=== PATIENT | male | born 1950 | race Caucasian/White ===

== ENCOUNTER → 2017-07-16 | Outpatient (CLI) | payer MEDICARE ==
--- NOTE | 2017-07-16 21:17 | MR ---
MRI CERVICAL SPINE: CLINICAL HISTORY: Cervicalgia and cervical disc degeneration per order. Headache with neck pain for 5 years per patient. TECHNIQUE: Multiplanar, multisequence imaging of the cervical spine is performed without IV contrast. COMPARISON: MRI cervical spine September 20, 2013. FINDINGS: Coronal images redemonstrate levoconvex scoliotic curvature positioning centered in the upp er thoracic spine. Sagittal images of the cervical spine show the craniocervical junction to appear w ithin normal limits. The cervical and upper thoracic spinal cord is normal in caliber and signal. Th ere is persistent grade 1 retrolisthesis of C5 on C6.. The vertebral body heights are normal. There is redemonstration of mild to moderate disc space narrowing C5-C6 and C6-C7 levels. Posterior disc h erniations are present at these levels on sagittal images. There is mild to moderate anterior spurrin g at these levels redemonstrated. The bone marrow signal intensity is within normal limits. Axial images show the C2-C3 level to remain within normal limits. Axial images at C3-C4 level show new right foraminal disc protrusion causing asymmetric mild to moder ate right-sided neural foraminal narrowing seen best on axial image 41. Left-sided neural foramen is patent. Spinal canal is preserved. Axial images at C4-C5 level redemonstrate left-sided uncovertebral facet degenerative changes contrib uting to mild to moderate left-sided neural foraminal narrowing more prominent than on prior study. R ight-sided neural foramina is patent. Spinal canal is preserved. Axial images at C5-C6 level show broad-based right paracentral/foraminal disc protrusion effacing ant erolateral thecal sac nearly up to ventral surface of spinal cord and causing severe right and modera te to severe left-sided neural foraminal narrowing with findings more prominent than prior study. Axial images at C6-C7 level show broad disc protrusion with more focal central disc protrusion compon ent effacing anterior thecal sac and causing advanced bilateral neural foraminal narrowing with progr ession from prior MRI felt present seen best near axial image 14. Axial images at C7-T1 level are felt within normal limits. IMPRESSION: Progression of multilevel degenerative changes with new findings noted C3-C4 and C4-C5 le ginette and more prominent findings noted at more severely affected C5-C6 and C6-C7 levels as detailed ab ove.
== END | disposition home or self-care (01) ==
LOC: RADMRIMAIN 16:05
PROVIDERS: ATTEND Family Medicine
DX: M47.812 Spondylosis without myelopathy or radiculopathy, cervical region (principal)
CPT/HCPCS: 72141

== ENCOUNTER → 2020-07-21 | Outpatient (CLI) | payer MEDICARE ==
[2020-07-21 11:12] LABS: African American GFR (CKD) >90 (>60 ml/min/1.73 sqM); Blood Urea Nitrogen 10 mg/dL (9-20); Non-African American GFR(CKD) 80 (>60 ml/min/1.73 sqM)
--- NOTE | 2020-07-21 14:28 | CT ---
"EXAMINATION TYPE: CT abdomen pelvis w con DATE OF EXAM: 07/21/2020 COMPARISON: None HISTORY: Stomach pains, swelling, constipation, possible hernia CT DLP: 421.2 mGycm Automated exposure control for dose reduction was used. TECHNIQUE: Helical acquisition of images from the lung bases through the pelvis have been completed. CONTRAST: Performed with Oral Contrast and with IV Contrast, patient injected with 100 mL of Isovue 300. FINDINGS: Left inguinal hernia contains fat. LUNG BASES: No significant abnormality is appreciated. AORTA: Infrarenal abdominal aorta measures 3.5 cm, atheromatous changes are present.. LIVER/GB: No significant abnormality is appreciated. PANCREAS: Pancreatic duct appears prominently, no mass is evident however. SPLEEN: No significant abnormality is seen. ADRENALS: No significant abnormality is seen. KIDNEYS: Low dense focus in the lower pole the right kidney subcentimeter size likely represents a co rtical cyst.. REPRODUCTIVE ORGANS: There are associated calcifications within the prostate. BOWEL: Diverticular changes noted within the sigmoid colon. At the level of the left pelvic sidewall there is an elliptical area of low-attenuation measuring 3.1 cm in AP dimension by 12 mm in transver se dimension by 2.6 cm in cephalad to caudal dimension which show some local mass effect on the lumen of the sigmoid colon but appears to be within the wall of the sigmoid colon. FREE AIR: No Free Air visible. ASCITES: None visible. PELVIC ADENOPATHY: None visualized. RETROPERITONEAL ADENOPATHY: No Retroperitoneal Adenopathy visible. URINARY BLADDER: No significant abnormality is seen. OSSEOUS STRUCTURES: Bilateral spondylolysis at L5, there is anterolisthesis L5-S1, associated degene rative disc disease at the lower lumbar spine, facet arthropathy. IMPRESSION: PROBABLE ABSCESS LOCALIZED TO THE WALL OF THE SIGMOID COLON. LEFT INGUINAL HERNIA. DIVERTICULOSIS. A Yellow level critical message alert has been initiated for Zane Coto MD~[id number] via the [employer] | Critical Results System on 07/21/2020 2:25 PM. This message alert has been sent to Zane Coto MD~[id number] via the preferences provided by the clinician for the receipt of Radiology Critical Findings. Message ID [id number]."
== END | disposition home or self-care (01) ==
LOC: RADCTMAIN 10:20
PROVIDERS: ATTEND Surgery
DX: K40.90 Unilateral inguinal hernia, without obstruction or gangrene, not specified as recurrent (principal); K57.30 Diverticulosis of large intestine without perforation or abscess without bleeding
CPT/HCPCS: 82565; 84520; 74177; 36415; Q9967

== ENCOUNTER → 2020-08-18 | Outpatient (CLI) | payer MEDICARE ==
[2020-08-18 11:29] LABS: African American GFR (CKD) >90 (>60 ml/min/1.73 sqM); Blood Urea Nitrogen 15 mg/dL (9-20); Non-African American GFR(CKD) 83 (>60 ml/min/1.73 sqM)
--- NOTE | 2020-08-19 17:25 | CT ---
EXAMINATION TYPE: CT abdomen pelvis w con DATE OF EXAM: 08/18/2020 COMPARISON: 07/21/2020. HISTORY: Diverticulitis CT DLP: 376.70 mGycm Automated exposure control for dose reduction was used. TECHNIQUE: Helical acquisition of images was performed from the lung bases through the pelvis. CONTRAST: Performed with Oral Contrast and with IV Contrast, patient injected with 100 mL of Isovue 300. FINDINGS: LUNG BASES: No significant abnormality is appreciated. LIVER/GB: No significant abnormality is appreciated. PANCREAS: No significant abnormality is seen. Stable mild pancreatic ductal dilatation without obviou s mass or stone seen. SPLEEN: No significant abnormality is seen. ADRENALS: No significant abnormality is seen. KIDNEYS: No significant abnormality is seen. FREE AIR: No free air is visualized. RETROPERITONEAL ADENOPATHY: None visualized REPRODUCTIVE ORGANS: No significant abnormality is seen URINARY BLADDER: No significant abnormality is seen. PELVIC ADENOPATHY: None visualized. OSSEOUS STRUCTURES: No acute abnormality is seen. Stable grade 1 anterolisthesis at L5-S1. BOWEL: No acute abnormality is seen. Mild bowel wall thickening of the sigmoid colon at site of prev ious small wall abscess. Colon diverticulosis. OTHER: None. IMPRESSION: RESOLUTION OF PREVIOUS SIGMOID COLONIC WALL ABSCESS WITH RESIDUAL MILD THICKENING. NO ACUTE ABNORMALITY. Chronic findings as above.
== END | disposition home or self-care (01) ==
LOC: RADCTMAIN 10:28
PROVIDERS: ATTEND Surgery
DX: K57.32 Diverticulitis of large intestine without perforation or abscess without bleeding (principal)
CPT/HCPCS: 82565; 84520; 74177; 36415; Q9967

== ENCOUNTER 2020-09-19 09:59 | Day surgery (SDC) | payer MEDICARE ==
[2020-09-13 10:00] VITALS: BMI 20.9
[~2020-09-19 09:59] MED LIST: LACTATED RINGERS 1,000 ML IV SCH; LIDOCAINE 1% (10MG/ML) FOR IV START INTRADERMA PRN
[2020-09-19 10:26] VITALS: RESP 16; TEMP 97.8
[2020-09-19] MEDS ORDERED: PROPOFOL 10 MG/ML 20 ML VIAL IV ONE (10:49)
--- NOTE | 2020-09-19 11:08 | P.PCN ---
Date of Procedure: 09/19/20 Procedure(s) Performed: PREOPERATIVE DIAGNOSIS: Change in bowel habits POSTOPERATIVE DIAGNOSIS: Extensive sigmoid diverticulosis with tortuosity. Unable to advance beyond the mid to proximal sigmoid colon PROCEDURE: Attempted colonoscopy ANESTHESIA: MAC SURGEON: Zane Coto M.D. SPECIMENS: None ENDOSCOPIC PROCEDURE: The patient was placed on the endoscopy table in the left decubitus position. The Olympus colonoscope was inserted into the anus and passed under direct visualization to the mid to proximal sigmoid colon. Navigation through the sigmoid was quite challenging given tortuosity and significant diverticulosis. There was no definite stricture formation. No neoplastic changes were seen. I could not advance the scope more proximal than that. The visualized sigmoid and rectum are free of any polypoid or neoplastic changes. Mild mucosal inflammation was seen in a few areas consistent with recent diverticulitis. Digital rectal examination was normal. The patient was taken to the recovery room in stable condition per anesthesia guidelines. RECOMMENDATIONS: Will order a barium enema for tomorrow.
[2020-09-19 11:26] VITALS: BP 123/76; PULSE 72
== END 2020-09-19 11:57 | disposition home or self-care (01) ==
LOC: ORWHC2ENDO 09:59
PROVIDERS: ATTEND Surgery
DX: K57.30 Diverticulosis of large intestine without perforation or abscess without bleeding (principal); K40.90 Unilateral inguinal hernia, without obstruction or gangrene, not specified as recurrent; I10 Essential (primary) hypertension; E78.5 Hyperlipidemia, unspecified; F03.90 Unspecified dementia, unspecified severity, without behavioral disturbance, psychotic disturbance, mood disturbance, and anxiety; M19.90 Unspecified osteoarthritis, unspecified site; F17.210 Nicotine dependence, cigarettes, uncomplicated; Z79.891 Long term (current) use of opiate analgesic; Z79.1 Long term (current) use of non-steroidal anti-inflammatories (NSAID); Z79.899 Other long term (current) drug therapy; Z96.659 Presence of unspecified artificial knee joint
CPT/HCPCS: 45330; J2704; 45378

== ENCOUNTER → 2020-09-20 | Outpatient (CLI) | payer MEDICARE ==
--- NOTE | 2020-09-20 10:47 | FL ---
EXAMINATION TYPE: FL barium enema DATE OF EXAM: 09/20/2020 COMPARISON: CT abdomen and pelvis August 18, 2020 HISTORY: Incomplete colonoscopy yesterday. TECHNIQUE: A double contrast barium enema study is performed. 20 images obtained during exam. There was 1.36 minutes of fluoroscopic time utilized during procedure. FINDINGS: Seat Mender view of the abdomen shows overall non-obstructive bowel gas pattern. Slight underlyi ng scoliotic curvature. Multilevel spurring in the spine. Moderate narrowing both hip joints. Enema study is performed. There are successful opacification to cecum. Redundancy is confirmed as not ed on incomplete colonoscopy yesterday and the sigmoid colon. There are scattered colonic diverticula greatest in the sigmoid colon. No obstructing or constricting lesion identified. Presence of diverti cula and redundant colon makes evaluation for focal polyps suboptimal. There is also internal retaine d fecal debris making evaluation for polyps suboptimal. Appendix was filled and appeared normal. The terminal ileum was not refluxed. IMPRESSION: Suboptimal study but there is successful filling to the cecum. Scattered colonic diverti cula without obstructing or constricting neoplasm noted.
== END | disposition home or self-care (01) ==
LOC: RADFLMAIN 07:51
PROVIDERS: ATTEND Surgery
DX: K57.30 Diverticulosis of large intestine without perforation or abscess without bleeding (principal)
CPT/HCPCS: 74270

== ENCOUNTER → 2020-11-28 | Outpatient (CLI) | payer MEDICARE ==
--- NOTE | 2020-11-28 14:51 | MR ---
EXAMINATION TYPE: MR cspine/lspine wo con DATE OF EXAM: 11/28/2020 COMPARISON: MRI cervical and lumbar spine September 20, 2013. MRI cervical spine July 16, 2017 HISTORY: Neck and lower back pain, stiffness, headaches. Cervicalgia, cervical disc degeneration, low back pain, intervertebral disc degeneration lumbar spine. TECHNIQUE: Multiplanar, multisequence imaging of the cervical and lumbar spine are performed without IV contrast. FINDINGS: C-SPINE: FINDINGS: Persistent levoconvex scoliotic curvature positioning centered upper thoracic spine Sagitta l images of the cervical spine show the craniocervical junction to remain within normal limits. The cervical and upper thoracic spinal cord remains normal in caliber and signal. There is persistent gra de 1 retrolisthesis of C5 on C6 and C6 on C7. The vertebral body heights remain normal. There is red emonstration of moderate disc space narrowing C5-C6 and C6-C7 levels slightly more prominent from 201 7 study. There is moderate anterior spurring at these levels on current study. The bone marrow signal intensity overall show slightly more prominent heterogeneity on current study. Axial images show the C2-C3 level to remain within normal limits. Axial images at C3-C4 level show broad-based disc protrusion and uncovertebral facet degenerative karo nges mildly effaces the anterior thecal sac and causing mild left along with moderate to severe right -sided neural foraminal narrowing. Interval degenerative progression from 2017 MRI noted. Axial images at C4-C5 level redemonstrate left-sided uncovertebral facet degenerative changes contrib uting to mild to moderate left-sided neural foraminal narrowing stable from prior study. Right-sided neural foramina is patent. Spinal canal is preserved. Axial images at C5-C6 level show spondylolisthesis and broad-based right paracentral/foraminal disc p rotrusion effacing anterolateral thecal sac and causing severe right and moderate left-sided neural f oraminal narrowing likely stable from most recent prior study. Axial images at C6-C7 level show broad-based disc protrusion with more focal central disc protrusion component effacing anterior thecal sac similar to prior and causing moderate to advanced bilateral ne ural foraminal narrowing with without significant change from prior matter axial image 17 current hansel dy Axial images at C7-T1 level show small right paracentral disc protrusion effacing ventral thecal sac with mild bilateral neural foraminal narrowing. IMPRESSION: Stable spondylolisthesis C5-C6 and C6-C7 levels. Multilevel degenerative changes with sharmaine e degenerative progression from 2017 MRI noted as detailed above. L-SPINE: Dextroconvex scoliotic curvature centered L4 level is present. Sagittal images of the lumbar spine sh ow vertebral body heights to remain satisfactory. Slight grade 1 retrolisthesis L3 on L4 with more pr ominent grade 1 anterolisthesis L5 on S1 is redemonstrated. There is multilevel disc desiccation agai n seen. There is moderate disc space narrowing L4-L5 and moderate to advanced disc space narrowing L5 -S1 level. The conus medullaris remains normal in position and signal ending at T12-L1 disc space le ginette. 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 Th e bone marrow signal intensity is within normal limits. Axial images at T12-L1 level remain within normal limits. Axial images at L1-L2 level show mild to moderate broad disc bulge mildly effaces the anterior thecal sac with right foraminal disc protrusion component causing mild right-sided anterior inferior neural foraminal narrowing. Patent left-sided neural foramina. Axial images at the L2-L3 level show mild to moderate broad disc bulge mildly effacing anterior theca l sac, there is mild right-sided anterior inferior neural foraminal narrowing seen on current study. Axial images at L3-L4 level mild to moderate facet degenerative changes and ligamenta flavum hypertro phy. There is spondylolisthesis with moderate broad-based posterior disc protrusion. There is mild ef facement of anterior thecal sac. There is moderate left and mild right-sided neural foraminal narrowi ng seen. Findings progressed from prior MRI. Axial images at L4-L5 level show mild/moderate facet arthropathy bilaterally. There is subtle spondyl olisthesis with right paracentral disc protrusion effacing anterolateral thecal sac, there is moderat e left and moderate to severe right-sided neural foraminal narrowing. Interval progression from prior MRI noted. Axial images at L5-S1 level redemonstrated spondylolisthesis with disc herniation, there is moderate to advanced facet arthropathy more prominent on current study. There is moderate to severe right and mild to moderate left-sided neural foraminal narrowing, encroachment along inferior margin right L5 n erve is thought present on current study sagittal image 14. Paraspinal muscle bulk is preserved. 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
== END | disposition home or self-care (01) ==
LOC: RADMRIMAIN 12:33
PROVIDERS: ATTEND Family Medicine
DX: M43.17 Spondylolisthesis, lumbosacral region (principal); M47.816 Spondylosis without myelopathy or radiculopathy, lumbar region; M51.27 Other intervertebral disc displacement, lumbosacral region; M43.12 Spondylolisthesis, cervical region; M50.223 Other cervical disc displacement at C6-C7 level; M47.812 Spondylosis without myelopathy or radiculopathy, cervical region
CPT/HCPCS: 72141; 72148

== ENCOUNTER 2020-12-25 06:07 | Day surgery (SDC) | payer MEDICARE ==
[2020-12-20 10:51] VITALS: BMI 20.9
[~2020-12-25 06:07] MED LIST changes: +ACETAMINOPHEN TAB 500 MG TAB PO PRN; +HEPARIN SODIUM,PORCINE/PF 5,000 UNIT/0.5 ML SYRINGE SQ PRN; -LACTATED RINGERS 1,000 ML IV SCH; -LIDOCAINE 1% (10MG/ML) FOR IV START INTRADERMA PRN
[2020-12-25] MEDS ORDERED: MIDAZOLAM 2 MG/2 ML VIAL IV PRN (06:21)
[2020-12-25] MEDS ORDERED: LACTATED RINGERS 1,000 ML IV SCH (06:21)
[2020-12-25] MEDS ORDERED: LIDOCAINE 1% (10MG/ML) FOR IV START INTRADERMA PRN (06:21)
[2020-12-25 06:35] VITALS: RESP 16
[2020-12-25] MEDS ORDERED: ONDANSETRON 4 MG/2 ML VIAL ONE (06:42)
[2020-12-25] MEDS ORDERED: HYDROmorphone 0.5 MG/0.5 ML SYRINGE IVP PRN (07:00)
[2020-12-25] MEDS ORDERED: ONDANSETRON 4 MG/2 ML VIAL IVP ONE (07:03)
[2020-12-25] MEDS ORDERED: DEXAMETHASONE SOD PHOSPHATE 4 MG/ML 1 ML VIAL IV ONE (07:04)
--- NOTE | 2020-12-25 07:39 | P.GSHP ---
History of Present Illness H&P Date: 12/25/20 Chief Complaint: Left inguinal hernia 70-year-old male first seen last fall. Patient with complaints of left inguinal hernia. Mild pain at times. No nausea or vomiting. He underwent colonoscopy in September and follow-up barium enema after that. Past Medical History Past Medical History: Eye Disorder, Osteoarthritis (OA), Skin Disorder Additional Past Medical History / Comment(s): HX LT EYE INJ 1975, PARTIAL VISION LOSS. VARICOSE VEINS. HERNIA, DIVERTICULITIS History of Any Multi-Drug Resistant Organisms: None Reported Past Surgical History: Joint Replacement, Orthopedic Surgery Additional Past Surgical History / Comment(s): RT KNEE LATERAL DISLOCATION REPAIR, HAS A STAPLE. LT EYE SURG REPAIR. COLONOSCOPY, 05-28-16 TOTAL RT KNEE Past Anesthesia/Blood Transfusion Reactions: No Reported Reaction Additional Past Anesthesia/Blood Transfusion Reaction / Comment(s): no hx blood transfusion Smoking Status: Former smoker - Past Family History Mother Family Medical History: No Reported History Additional Family Medical History / Comment(s): AT AGE 87 PT STATED FROM OLD AGE Father Family Medical History: Coronary Artery Disease (CAD), Sleep Apnea/CPAP/BIPAP Additional Family Medical History / Comment(s): TRIPLE CABG Medications and Allergies Home Medications Medication Instructions Recorded Confirmed Type traZODone HCL [Desyrel] 100 mg PO HS 05/20/16 12/25/20 History HYDROcodone/APAP 7.5-325MG [Finger 1 - 2 each PO Q6HR PRN #60 tab 05/30/16 12/25/20 Rx 7.5] Celecoxib [CeleBREX] 200 mg PO DAILY 09/13/20 12/20/20 History Aspirin 325 mg PO DAILY PRN 12/20/20 12/20/20 History Allergies Allergy/AdvReac Type Severity Reaction Status Date / Time No Known Allergies Allergy Verified 12/20/20 10:44 Surgical - Exam Vital Signs Temp Pulse Resp BP Pulse Ox 97.4 F L 61 16 145/82 97 12/25/20 06:33 12/25/20 06:33 12/25/20 06:33 12/25/20 06:33 12/25/20 06:33 Physical exam: General: Well-developed, well-nourished HEENT: Normocephalic, sclerae nonicteric Abdomen: Nontender, nondistended, reducible left inguinal hernia Extremities: No edema Neuro: Alert and oriented Assessment and Plan (1) Left inguinal hernia Narrative/Plan: Will proceed with da Kaylee assisted laparoscopic repair left inguinal hernia with mesh, possible open, possible bilateral. Risks of bleeding, infection, recurrence, bladder and bowel injury, numbness, nerve injury, conversion to an open procedure were discussed with the patient. The patient understands and wishes to proceed. Current Visit: Yes Status: Acute Code(s): K40.90 - UNIL INGUINAL HERNIA, W/O OBST OR GANGR, NOT SPCF RECUR OMED Code(s): 861744361
[2020-12-25] MEDS ORDERED: SUCCINYLCHOLINE CHLORIDE 100 MG/5 ML SYR IV ONE (07:45)
[2020-12-25] MEDS ORDERED: GLYCOPYRROLATE 0.2 MG/ML 2 ML VIAL ONE (07:45)
[2020-12-25] MEDS ORDERED: KETOROLAC 15 MG/ML 1 ML VIAL ONE (07:45)
[2020-12-25] MEDS ORDERED: LIDOCAINE 1% INJ 10MG/ML (20 ML MDV) ONE (07:45)
[2020-12-25] MEDS ORDERED: fentaNYL (PF) 50 MCG/ML 2 ML AMP ONE (07:45)
[2020-12-25] MEDS ORDERED: ePHEDrine SULFATE/0.9% NACL/PF 50 MG/5 ML SYRINGE IV ONE (07:45)
[2020-12-25] MEDS ORDERED: ROCURONIUM 10 MG/ML (5 ML VIAL) IV ONE (07:45)
[2020-12-25] MEDS ORDERED: PROPOFOL 10 MG/ML 20 ML VIAL IV ONE (07:45)
[2020-12-25] MEDS ORDERED: NEOSTIGMINE 1 MG/ML 10 ML VIAL ONE (07:45)
[2020-12-25] MEDS ORDERED: BUPIVACAINE (PF) 0.25% 30 ML VIAL SQ ONE (08:12)
[2020-12-25] MEDS ORDERED: LACTATED RINGERS 1,000 ML IV ONE (09:02)
--- NOTE | 2020-12-25 09:08 | P.OP ---
Date of Procedure: 12/25/20 Procedure(s) Performed: PREOPERATIVE DIAGNOSIS: Left inguinal hernia POSTOPERATIVE DIAGNOSIS: Same PROCEDURE: Laparoscopic repair left direct inguinal hernia with the da Kaylee robot assistance with mesh SURGEON: Nnamdi EBL: Minimal ANESTHESIA: General COMPLICATIONS: None OPERATIVE PROCEDURE: Patient was placed in the operating table in the supine position. The patient was placed under general anesthesia. The abdomen was prepped and draped in usual sterile fashion. A small curvilinear supraumbilical incision was made. The fascia was retracted anteriorly with [place] forceps. The Veress needle was inserted. The saline drop test was normal. Insufflation took place to 15 mmHg. An 8 mm trocar was placed into the peritoneal cavity. 2 additional 8 mm trochars were placed in the right upper quadrant and left upper quadrant under visualization. The robotic arms were then brought in and docked into place. The fenestrated bipolar was used in the left arm and the laparoscopic jeet was utilized in the right arm. A 30 8 mm scope was used in the up position. The peritoneal cavity was inspected. The patient had a direct hernia on the left-hand size. Defect 2.5 cm. The peritoneum was incised in a horizontal fashion cephalad to the internal inguinal ring. Following that careful dissection of the preperitoneal space took place. This took place using both electrocautery, sharp dissection but primarily blunt dissection. Visualization of the pubic tubercle and Pedro's ligament took place medially. Full dissection took place laterally as well. The hernia sac was fully dissected. Once we had adequate space the extra-large Bard 3-D max mid mesh was advanced into the preperitoneal space and flattened out appropriately to cover all potential hernia sites. A six-inch 20 v lock suture was used to suture the mesh medial to the defect. The peritoneal defect was then closed using a locking 2-0 VLok suture. The hernia sac was sutured to the peritoneal closure. The pneumoperitoneum was then evacuated. The skin of all 3 sites was closed using a 4-0 Monocryl stitch. Skin glue was then applied. DISPOSITION: Stable to recovery room
[2020-12-25] MEDS ORDERED: TAMSULOSIN 0.4 MG CAP.ER.24H PO STA (09:10)
[2020-12-25 09:18] VITALS: TEMP 98.6
[2020-12-25] MEDS: HYDROmorphone 1 MG/ML 1 ML SYRINGE IVP ONE ×4 (09:35→09:54)
[2020-12-25] MEDS ORDERED: SODIUM CHLORIDE 0.9% 1,000 ML IV ONE (10:06)
[2020-12-25] MEDS ORDERED: HYDROcodone/APAP 7.5-325MG 1 EACH TAB ONE (10:30)
[2020-12-25] MEDS ORDERED: HYDROcodone/APAP 7.5-325MG 1 EACH TAB PO ONE (10:34)
[2020-12-25 10:57] VITALS: BP 131/70; PULSE 67
[2020-12-25] MEDS ORDERED: IBUPROFEN 600 MG TAB PO SCH (12:00)
[2020-12-25] MEDS ORDERED: ACETAMINOPHEN TAB 325 MG TAB PO SCH (15:00)
== END 2020-12-25 11:17 | disposition home or self-care (01) ==
LOC: OR 06:07
PROVIDERS: ATTEND Surgery
DX: K40.90 Unilateral inguinal hernia, without obstruction or gangrene, not specified as recurrent (principal); M19.90 Unspecified osteoarthritis, unspecified site; H54.7 Unspecified visual loss; I83.90 Asymptomatic varicose veins of unspecified lower extremity; Z96.651 Presence of right artificial knee joint; Z98.890 Other specified postprocedural states; F17.210 Nicotine dependence, cigarettes, uncomplicated; Z82.49 Family history of ischemic heart disease and other diseases of the circulatory system; Z83.6 Family history of other diseases of the respiratory system; Z79.891 Long term (current) use of opiate analgesic; Z79.899 Other long term (current) drug therapy; Z79.82 Long term (current) use of aspirin
CPT/HCPCS: 49650; S2900

== ENCOUNTER → 2021-02-12 | Outpatient (CLI) | payer MEDICARE ==
[2021-02-12 11:41] VITALS: BP 125/84; PULSE 66; RESP 16; TEMP 97.7
--- NOTE | 2021-02-12 12:02 | P.PAINCN ---
History of Present Illness - Reason for Consult Consult date: 02/12/21 - History of Present Illness This is the initial consultation visit for this 70 years old male with a chronic history of severe neck pain and low back pain, patient diagnosed with lumbar spondylosis and lumbar facet arthropathy, and cervical spondylosis with cervical facet arthropathy, and was treated at the [facility] by Dr. Pike and he did RFA of the medial branch cervical area, and patient gets excellent pain relief, and also patient had transforaminal epidural steroid injection and he does admit benefits from it and currently most of the pain in the cervical area and the pain increased with any neck movement he denies any fever or night sweats he denies any change in the bowel movement or urination, he denies any motor or sensory deficit is able to use his upper and lower extremity without any difficulty, his main issue is pain which is increased with any activity he denies any numbness or tingling sensation Past Medical History Past Medical History: Eye Disorder, Hypertension, Musculoskeletal Disorder, Osteoarthritis (OA), Skin Disorder Additional Past Medical History / Comment(s): HX LT EYE INJ 1975, PARTIAL VISION LOSS. VARICOSE VEINS. DIVERTICULITIS, lower back pain & neck pain History of Any Multi-Drug Resistant Organisms: None Reported Past Surgical History: Hernia Repair, Joint Replacement, Orthopedic Surgery Additional Past Surgical History / Comment(s): RT KNEE LATERAL DISLOCATION REPAIR, HAS A STAPLE. LT EYE SURG REPAIR. COLONOSCOPY, 05-28-16 TOTAL RT KNEE Past Anesthesia/Blood Transfusion Reactions: No Reported Reaction Past Psychological History: No Psychological Hx Reported Smoking Status: Former smoker Past Alcohol Use History: None Reported Additional Past Alcohol Use History / Comment(s): SMOKED 50 YEARS, 1PPD, QUIT 03/2016. Past Drug Use History: None Reported - Past Family History Mother Family Medical History: No Reported History Additional Family Medical History / Comment(s): AT AGE 87 PT STATED FROM OLD AGE Father Family Medical History: Coronary Artery Disease (CAD), Sleep Apnea/CPAP/BIPAP Additional Family Medical History / Comment(s): TRIPLE CABG Medications and Allergies Home Medications Medication Instructions Recorded Confirmed Type traZODone HCL [Desyrel] 100 mg PO HS 05/20/16 02/09/21 History HYDROcodone/APAP 7.5-325MG [[place] 1 - 2 each PO Q6HR PRN #60 tab 05/30/16 02/09/21 Rx 7.5] Celecoxib [CeleBREX] 200 mg PO DAILY 09/13/20 02/09/21 History Cetirizine HCl [Zyrtec] 10 mg PO DAILY PRN 02/09/21 02/09/21 History Losartan Potassium [Cozaar] 50 mg PO DAILY PRN 02/09/21 02/09/21 History tiZANidine [Zanaflex] 4 mg PO HS PRN 02/09/21 02/09/21 History Allergies Allergy/AdvReac Type Severity Reaction Status Date / Time No Known Allergies Allergy Verified 12/20/20 10:44 Physical Exam Vitals: Vital Signs Temp Pulse Resp BP Pulse Ox 02/12/21 11:15 97.7 F 66 16 125/84 97 Physical Examinations : -Constitutiona : Cooperative , not in acute distress . -HEENT : nech : supple , no Lymphadenopathy , normal thyroid size . : eyes : no ptosis , no icterus, no photophobia . - neurologic : Cranial nerve II to XII intact , no focal neurological deffecit . -psychatric : alert , oriented X 3 , appropriate affect , intact judgment and insight . -Lymphatic : no Lymphadenopathy . - musculoskeltal : Cervical Spine motor stregnth in the deltoid and biceps, normal right side , normal Left side motor stregnth biceps and the wrist extensors normal right side ,normal left side . motor stregnth in the triceps muscle . normal Right side , normal Left side deep tendon reflexes normal at the biceps , normal at Brachioradialis , normal at triceps. cervical facet loading test: Positive Bilaterally Spurling test= positive Right , positive left. Neck distraction test= positive Right , positive left. Kathleen sign= positive right, positive left . Lumber spine moter stegnth lower extremities ,thigh and legs 5/5 Right side , 5/5 Left side deep tendon reflexes : normal Knee Jerk , normal ankle Jerk lumber facet Loading Test =positive Right , positive Left Range of motion of the lumbar spine Flexion 30 degrees, extension 10 degrees strait leg raising test = negative bilaterally Fabere test= negative bilaterally. Sever tenderness over the Sacroiliac joint on the Right , and Left sides Gaenslen test= positive right ,and positive left . Seated flexion test= positive right ,and positive Left . Distraction test= positive bilaterally Sacroiliac compression test= positive bilaterally Results Comments: MRI of the cervical spine= multilevel cervical degenerative disc disease multilevel cervical spondylosis with cervical facet arthropathy MRI of the lumbar spine= multilevel lumbar degenerative disc disease multilevel lumbar facet arthropathy Assessment and Plan Plan: Assessment and plan=1-cervical spondylosis with cervical facet arthropathy. 2-cervical degenerative disc disease. 3-lumbar degenerative disc disease. 4-lumbar spondylosis with lumbar facet arthrop athy. 5-sacroiliitis. Patient could benefit from repeat RFA of the medial branch cervical area (revisits the patient had RFA C2 ,C3 ,C4,C5,C6 Bilateral ) But currently insurance approval on a history levels bilaterally, this reason we will schedule patient for RFA bilateral C3, C4 ,C5 bilaterally Patellar in the future we can treat his low back pain by doing bilateral sacroiliac joint steroid injection, and possible MBB Time with Patient: Greater than 30 PQRS Measure Charge Sheet Measure #130: Documentation of Current Meds in Medical Chart: Patient's medications documented in chart Measure #226: Tobacco Use: Screen & Cessation Intervention: Pt screened for tobacco use AND intervention given Measure #111: Pneumonia Vaccination: Pneumococcal vaccine administered or previously received Measure #47: Advance Care Plan: Advance care planning discussed & documented, pt chose/unable to give Measure #412: Opioid Treatment Agreement: No documentation of signed opioid treatment agreement Measure #408: Opioid Therapy Follow-up Evaluation: Patient had NO f/u eval minimum every 3 months during opioid therapy Measure #317: Preventitive Care & Scrn High Bld Press & F/U: Normal blood pressure, f/u not required Measure #128: Body Mass Index (BMI) Screening & Follow-up: BMI documented within normal parameters Measure #131: Pain Assessment & Follow-up: Pain positive & plan documented, Follow-up scheduled Measure #431: Unhealthy Alcohol Use Preventative Care & Scrn: Patient not identified as an unhealthy alcohol user PQRS Narrative: Smoking Status Former smoker Blood Pressure 125/84 Pain Intensity [Neck] 5 Pain Intensity [Lower Back] 3 Scale Used Numeric (1 - 10) Hx Alcohol Use (MH) No Home Medications: Ambulatory Orders traZODone HCL [Desyrel] 100 mg PO HS 05/20/16 HYDROcodone/APAP 7.5-325MG [[place] 7.5] 1 - 2 each PO Q6HR PRN #60 tab 05/30/16 Celecoxib [CeleBREX] 200 mg PO DAILY 09/13/20 Cetirizine HCl [Zyrtec] 10 mg PO DAILY PRN 02/09/21 Losartan Potassium [Cozaar] 50 mg PO DAILY PRN 02/09/21 tiZANidine [Zanaflex] 4 mg PO HS PRN 02/09/21
== END ==
LOC: PNWHC3 11:01
PROVIDERS: ATTEND Specialist
DX: M47.812 Spondylosis without myelopathy or radiculopathy, cervical region (principal); M50.30 Other cervical disc degeneration, unspecified cervical region; M51.36 Other intervertebral disc degeneration, lumbar region; M47.816 Spondylosis without myelopathy or radiculopathy, lumbar region; M46.1 Sacroiliitis, not elsewhere classified; Z87.891 Personal history of nicotine dependence; I10 Essential (primary) hypertension; M19.90 Unspecified osteoarthritis, unspecified site; Z79.899 Other long term (current) drug therapy
CPT/HCPCS: 99211

== ENCOUNTER 2021-03-09 07:50 | Day surgery (SDC) | payer MEDICARE ==
[2021-03-07 15:03] VITALS: BMI 20.9
[2021-03-09 08:21] VITALS: TEMP 98.6
[2021-03-09 09:39] VITALS: PULSE 69; RESP 17
[2021-03-09 09:49] VITALS: BP 126/66
== END 2021-03-09 10:03 | disposition home or self-care (01) ==
LOC: ORPAIN 07:50
PROVIDERS: ATTEND Anesthesiology
DX: M54.2 Cervicalgia (principal); I10 Essential (primary) hypertension; F17.200 Nicotine dependence, unspecified, uncomplicated; Z97.2 Presence of dental prosthetic device (complete) (partial); Z79.891 Long term (current) use of opiate analgesic; Z79.899 Other long term (current) drug therapy
CPT/HCPCS: 64633; 64634; J2250; J2001; J3010; J2795

== ENCOUNTER → 2021-04-04 | Outpatient (CLI) | payer MEDICARE ==
--- NOTE | 2021-04-04 12:32 | P.PN ---
Subjective Progress Note Date: 04/04/21 This is a 70-year-old gentleman with history of chronic neck pain and bilat eral shoulder pain .the patient received radiofrequency ablation of the medial branches before C3, C4, and C5 bilaterally. The patient denies any improvement after this procedure .he still feels pain especially with extension and rotation of the cervical spine. The patient denies any numbness or tingling in the upper or lower extremities or any weakness. She also complains of pain on the lateral aspect of his left hip to the point that he cannot lie on his left side. He works as a triage registered nurse. Patient denies new-onset weakness, bowel/bladder incontinence, or any other signs or symptoms of cauda equina syndrome. There are no signs of acute intoxication, and no indications of medication diversion or overuse. In addition to above, 13-point review of systems is also negative for chest luz n, shortness of breath, changes in vision, changes in hearing, new onset weakness, abdominal pain, diarrhea, extreme fatigue, malaise, fever, skin changes, homicidal or suicidal ideation, or bowel or bladder incontinence. Vital Signs: Reviewed in EMR Gen: AAOx3, NAD HEENT: PERRLA,hearing grossly normal Pulm: resp unlabored Neck: supple, trachea midline Neuro exam of the lower extremities: Straight leg raising test: Rashad's test: Range of motion of the lumbar spine: Facet loading test: Tenderness in the paravertebral musculature: Positive in the cervical paravertebral musculature bilaterally Positive tenderness in the trapezius muscle bilaterally more on the left side than the right side Positive tenderness around the left greater trochanter Neuro: CN II-XII grossly intact, Imaging: Reviewed in EMR/chart Assessment: Cervical spondylosis without myelopathy Cervical DDD Left trochanter bursitis Plan: 1. Explanation: When patients on opioids, opioid and psychological risk scores were reviewed. Diagnoses, prognoses, and multiple treatment options including but not limited to physical therapy, interventional therapies, adjuvant medical therapies, narcotic medication therapies, and surgery were discussed with the patient and all questions were answered to the patient's satisfaction. 2. Opioid agreement:When patients are prescribed opoids through our clinic, opioid agreement is signed with the patient and the patient is warned not to use opioids while driving or before driving and not to combine opioids with benzodiazepines or alcohol. 3. Counseling: When patient is smoking or obese, the patient was counseled extensively on SMOKING CESSATION, BODY MASS INDEX, EXERCISE. Specifically, the patient was instructed regarding the importance of smoking cessation, obesity, and exercise in the context of both chronic pain and overall health. 4. Procedures: Scheduled for trigger point injection in the trapezius muscle bilaterally and also in the cervical paravertebral musculature bilaterally. We will also schedule at the same time for greater Trochanter bursa steroid injection on the left side. 5. Consultations: None 6. Investigations: None 7. Medications: None prescribed today however patient receives [place] 7.5 mg 2-3 times a day as needed from his primary care physician 8. Disposition: Proceed with the above-mentioned procedure as soon as possible 9. Maps were reviewed and were appropriate.
[2021-04-04 12:38] VITALS: BP 160/89; PULSE 67; RESP 18; TEMP 98.3
== END ==
LOC: PNWHC3 11:58
PROVIDERS: ATTEND Anesthesiology
DX: M47.812 Spondylosis without myelopathy or radiculopathy, cervical region (principal); M50.30 Other cervical disc degeneration, unspecified cervical region; M70.62 Trochanteric bursitis, left hip; Z87.891 Personal history of nicotine dependence
CPT/HCPCS: 99211

== ENCOUNTER → 2021-04-13 | Outpatient (CLI) | payer MEDICARE ==
--- NOTE | 2021-04-13 12:03 | CT ---
EXAMINATION TYPE: CT chest wo con DATE OF EXAM: 04/13/2021 COMPARISON: HISTORY: Abnormal wt. loss, Early satiety CT DLP: 137.4 mGycm. Automated Exposure Control for Dose Reduction was Utilized. TECHNIQUE: CT scan of the thorax is performed without IV contrast. FINDINGS: LUNGS: The lungs are grossly clear, there is no concerning parenchymal mass or nodule identified. T here is no pleural effusion or pneumothorax seen. The tracheobronchial tree is patent. Diffuse centr ilobular emphysematous changes noted. MEDIASTINUM: Lack of IV contrast is noted to limit evaluation for mediastinal and especially hilar ad enopathy. There are no definitive greater than 1 cm hilar or mediastinal lymph nodes. Atherosclerotic change aorta. Coronary artery calcification seen. Heart size normal. No sizable pericardial effusion . OTHER: Hypertrophic and degenerative changes spine. There is prominence the pancreatic duct.. IMPRESSION: 1. Diffuse COPD. 2. Prominent pancreatic duct. Correlate with CT abdomen.
--- NOTE | 2021-04-13 15:45 | CT ---
EXAMINATION TYPE: CT abdomen pelvis w con DATE OF EXAM: 04/13/2021 COMPARISON: 08/18/2020 HISTORY: 70-year-old male with weight loss, early satiety. R 68.81, R63.4. History of hernia surgery. TECHNIQUE: Contiguous axial scanning of the abdomen and pelvis following administration of 100 ml Iso melany 300 IV contrast. Delayed images through the kidneys and coronal/sagittal reconstructions perform ed. CT DLP: 381.2 mGycm Automated exposure control for dose reduction was used. FINDINGS: Heart normal size without pericardial effusion. Emphysematous change in the visualized lower lungs. N o pleural effusion. Tiny hiatal hernia. No focal liver lesion. Portal venous system is patent. Mildly dilated bile duct up to 9 mm. There is corresponding dilatation of the main pancreatic duct up to 8 mm similar to prior exam. No abnormal gallbladder distention. Adrenal glands, kidneys, and spleen within normal limits. Mild to moderate atherosclerotic calcifications abdominal aorta and iliac arteries. Unchanged fusifor m infrarenal AAA is 3.7 cm. No dilated small bowel, free fluid, or free air. No mesenteric or retroperitoneal lymphadenopathy see n. Normal appendix. There is moderate stool burden. Left-sided clonic diverticulosis, greatest in the si gmoid colon. Bladder partially distended. Osteophyte measures 3.9 cm wide. No abnormal fluid collection in the pel vis or pelvic lymphadenopathy. Bones: Mild degenerative change at the hips. Bilateral L5 pars defects with grade 2 anterolisthesis a t L5-S1. Grade 1 retrolisthesis L3-L4. Moderate to advanced degenerative disc disease lower lumbar sp ine. IMPRESSION: 1. CHRONICALLY DILATED BILE DUCT UP TO 9 MM. CORRESPONDING DILATATION OF THE MAIN PANCREATIC DUCT UP TO 8 MM. CONSIDER POSSIBILITY OF AN AMPULLARY STENOSIS. CORRELATE WITH ALKALINE PHOSPHATASE AND BILIR UBIN LEVELS. 2. STABLE INFRARENAL AAA AT 3.7 CM. 3. MODERATE STOOL BURDEN. LEFT-SIDED COLONIC DIVERTICULOSIS, SEVERE IN THE SIGMOID COLON. 4. BILATERAL L5 PARS DEFECTS WITH GRADE 2 ANTEROLISTHESIS AT L5-S1. MODERATE TO ADVANCED DEGENERATIVE DISC DISEASE LOWER LUMBAR SPINE.
== END | disposition home or self-care (01) ==
LOC: RADCTMAIN 07:33
PROVIDERS: ATTEND Family Medicine
DX: K57.30 Diverticulosis of large intestine without perforation or abscess without bleeding (principal); J44.9 Chronic obstructive pulmonary disease, unspecified
CPT/HCPCS: 82565; 84520; 71250; 74177; 36415; Q9967 ×2

== ENCOUNTER 2021-06-27 10:57 | Day surgery (SDC) | payer MEDICARE ==
[2021-06-22 13:55] VITALS: BMI 19.5
[~2021-06-27 10:57] MED LIST changes: -ACETAMINOPHEN TAB 500 MG TAB PO PRN; -HEPARIN SODIUM,PORCINE/PF 5,000 UNIT/0.5 ML SYRINGE SQ PRN; +LACTATED RINGERS 1,000 ML IV SCH; +LIDOCAINE 1% (10MG/ML) FOR IV START INTRADERMA PRN
[2021-06-27] MEDS ORDERED: LACTATED RINGERS 1,000 ML IV ONE (11:40)
[2021-06-27 11:41] VITALS: TEMP 97.8
[2021-06-27] MEDS ORDERED: LIDOCAINE 1% INJ 10MG/ML (20 ML MDV) ONE (12:29)
[2021-06-27] MEDS ORDERED: PROPOFOL 10 MG/ML 20 ML VIAL IV ONE (12:29)
--- NOTE | 2021-06-27 12:40 | P.PCN ---
Date of Procedure: 06/27/21 Procedure(s) Performed: BRIEF HISTORY: Patient is a 70-year-old, pleasant, white male scheduled for an upper endoscopy as a part of evaluation of intermittent dysphagia to solids for the last 6 months duration associated with some chronic cough. He lost 20 pounds in the last 3 months. His and scheduled for an upper endoscopy to evaluate further. PROCEDURE PERFORMED: Esophagogastroduodenoscopy with biopsy. PREOPERATIVE DIAGNOSIS: Epigastric pain/dysphagia and progressive weight loss of 3 months duration. IV sedation per anesthesia. PROCEDURE: After informed consent was obtained, the patient was brought into the endoscopy unit. IV sedation was administered by Anesthesia under continuous monitoring. Initially the Olympus GIF-140 video endoscope was inserted into the mouth. Esophagus intubated without any difficulty. It was gradually advanced into the stomach and duodenum and carefully examined. The bulb and the second part of the duodenum appeared normal. The scope at this time was withdrawn to the stomach, adequately insufflated with air, and upon careful examination, mucosa of the antrum had mild diffuse gastritis and biopsies were done from this area. The body, cardia and the fundus appeared normal. The scope was then withdrawn into the esophagus. The GE junction was located at 39 cm from the incisors. There were 2 superficial erosions in the distal esophagus consistent with LA grade B reflux esophagitis. The rest of the esophagus appeared normal and the patient tolerated the procedure well. IMPRESSION: 1. Linear erosions in the distal esophagus consistent with LA grade B reflux esophagitis. 2. Mild antral gastritis. RECOMMENDATIONS: The findings of this examination were discussed with the patient . as well as his family. He was advised to follow with the biopsy results. He will be started on omeprazole 20 mg daily and was briefly educated about antireflux measures. He'll be seen in office in
[2021-06-27 12:51] VITALS: RESP 15
[2021-06-27 13:04] VITALS: BP 109/67; PULSE 96
== END 2021-06-27 14:01 ==
LOC: ORWHC2ENDO 10:57
PROVIDERS: ATTEND Internal Medicine Gastroenterology
DX: K29.50 Unspecified chronic gastritis without bleeding (principal); K22.10 Ulcer of esophagus without bleeding; I10 Essential (primary) hypertension; R63.4 Abnormal weight loss; F17.210 Nicotine dependence, cigarettes, uncomplicated; Z98.890 Other specified postprocedural states; Z79.891 Long term (current) use of opiate analgesic; Z79.899 Other long term (current) drug therapy
CPT/HCPCS: 88305; 43239; J2001; J2704

== ENCOUNTER → 2021-07-19 | Outpatient (CLI) | payer MEDICARE ==
--- NOTE | 2021-07-19 11:07 | MR ---
EXAMINATION TYPE: MR pancreas wo/w con DATE OF EXAM: 07/19/2021 COMPARISON: CT 04/13/2021 and 08/18/2020 HISTORY: 70-year-old male with pain. R93.5 previous abnormal findings Technique: Multiplanar, multisequence images of the abdomen were obtained before and after administra tion of 6 mL IV Gadavist contrast. FINDINGS: Heart normal size without pericardial effusion. The liver is normal size at 15.9 cm. A too small to characterize 5 mm T2 hyperintensities present in inferior right liver lobe, coronal image 15, shows postcontrast enhancement following the blood flow to just a flash filling hemangioma. Bile duct mildly dilated up to 9 mm. Portal venous system is patent. No gallstones are seen. No abnormal gallbladder distention. Adrenal glands, kidneys, and spleen within normal limits. There is diffuse small dilatation of the main pancreatic duct up to 9 mm. This is diffuse dilatation except for a segment of narrowing at the level of the pancreatic neck. No enhancing pancreatic mass i s identified. No upper abdominal lymphadenopathy or ascites fluid. Some mild scattered colonic diverticulosis in th e upper mid abdomen. 3.7 cm fusiform aneurysm mid abdominal aorta redemonstrated. Degenerative disc disease with slight dextroconvexed curvature along the lumbar spine. IMPRESSION: 1. Diffuse dilatation of the main pancreatic duct up to 9 mm except with a segment of narrowing at th e level of the pancreatic neck. No enhancing pancreatic mass is identified. Main duct IPMN, ampullary stenosis, or postinflammatory stricture are differential considerations. Consider ERCP evaluation. A lso, correlation with tumor markers. 2. Mild biliary ductal dilatation of the 9 mm without any filling defect identified. This may be can carrier ramya for the patient. Again, ampullary stenosis is a possibility. Correlate with alkaline phosphatase and bilirubin levels. 3. No gallstones. 4. Redemonstrated 3.7 cm mid abdominal fusiform AAA.
== END | disposition home or self-care (01) ==
LOC: RADMRIMAIN 07:34
PROVIDERS: ATTEND Internal Medicine Gastroenterology
DX: K86.89 Other specified diseases of pancreas (principal); I71.4 Abdominal aortic aneurysm, without rupture; K83.8 Other specified diseases of biliary tract
CPT/HCPCS: 74183; A9585

== ENCOUNTER → 2021-09-06 | Outpatient (CLI) | payer MEDICARE ==
--- NOTE | 2021-09-06 11:17 | FL ---
COMPARISON: NONE DATE OF EXAM: 09/06/2021 HISTORY: Dysphasia A number of thin and thick substances were ingested under the care of the department of speech pathol ogy. There is no evidence of aspiration or penetration. There is no evidence of obstruction. There are significant residuals with vallecular pooling. No images submitted and 58 seconds of fluoroscopy provided. IMPRESSION: 1. No evidence of aspiration or penetration.. There are significant residuals with vallecular pooling
== END | disposition home or self-care (01) ==
LOC: RADFLMAIN 10:41
PROVIDERS: ATTEND Family Medicine
DX: R47.02 Dysphasia (principal); E44.1 Mild protein-calorie malnutrition
CPT/HCPCS: 74230

== ENCOUNTER → 2021-11-28 | Outpatient (CLI) | payer MEDICARE ==
--- NOTE | 2021-11-28 12:06 | CT ---
EXAMINATION TYPE: CT abdomen wo/w con DATE OF EXAM: 11/28/2021 COMPARISON: CT dated 04/13/2021 HISTORY: Abnormal scope done at [facility]. Weight loss, approximately 40 lbs over [address] DLP: 902 mGycm Automated exposure control for dose reduction was used. TECHNIQUE: Helical acquisition of images was performed from the lung bases through the top of iliac crest to include entire abdomen. CONTRAST: Performed without Oral Contrast and without and with IV Contrast, patient injected with 100 mL of Iso melany 370. FINDINGS: LUNG BASES: COPD changes. LIVER/GB: Few scattered hepatic cysts. Scattered millimetric hyperenhancing foci in the liver, possib ly representing areas of transient hepatic attenuation difference versus flash filling hemangiomas. N o other definite hepatic focal lesion identified. No radiodense gallbladder calculi. Slightly dilated central intrahepatic biliary tree and CBD measuring up to 10 mm with a transition is seen at the amp mila. PANCREAS: Dilated pancreatic duct measuring up to 7 mm with a transition seen at the ampulla. No defi nite pancreatic lesion identified otherwise. Stricture at the ampulla or subtle lesion can't be exclu ded. These changes are grossly stable since April 2021 CT scan. SPLEEN: No significant abnormality is seen. ADRENALS: No significant abnormality is seen. KIDNEYS: Tiny bilateral renal hypodensities likely representing renal cysts, otherwise unremarkable k idneys. BOWEL: Unremarkable stomach, duodenum and visualized small bowel. Colonic diverticulosis with thicke aminah of the sigmoid colon, please correlate with colonoscopy results. LYMPH NODES: No pathologically enlarged abdominal lymph nodes. OSSEOUS STRUCTURES: Bilateral L5 pars break with grade 1 anterolisthesis of L5 over S1. Degenerative changes of the lumbar spine. FREE AIR: No free air is visualized. OTHER: Infrarenal abdominal aortic aneurysm measuring 3.6 cm. No abdominal ascites. IMPRESSION: Redemonstration of the dilated intra and extrahepatic biliary tree as well as the pancreatic duct wit h a transition point is seen at the ampulla. The overall picture is stable since April 2021 CT scan. The underlying etiology could be related to stricture at the ampulla however a subtle ampullary lesi on cannot be excluded. Please correlate with ERCP results and bilirubin level. Other incidental findi ngs as described above.
== END | disposition home or self-care (01) ==
LOC: RADCTMAIN 10:12
PROVIDERS: ATTEND Family Medicine
DX: Z01.818 Encounter for other preprocedural examination (principal); K83.8 Other specified diseases of biliary tract; K86.89 Other specified diseases of pancreas
CPT/HCPCS: 82565; 84520; 74170; 36415; Q9967

== ENCOUNTER → 2021-12-25 | Outpatient (CLI) | payer MEDICARE ==
--- NOTE | 2021-12-25 10:17 | CT ---
EXAMINATION TYPE: CT soft tissue neck w con DATE OF EXAM: 12/25/2021 9:12 AM COMPARISON: None available HISTORY: swelling/mass/lump neck CT DLP: 379 mGycm Automated exposure control for dose reduction was used. CONTRAST: CT scan of the neck is performed following with IV Contrast, patient injected with 100ML mL of Isovue 300. Axial images are obtained, coronal and sagittal reformatted images are reviewed. FINDINGS: 7.5 mm linear calcification is seen along the superior aspect of the right arytenoid cartilage, insep arable from the inferior aspect of the right aryepiglottic fold and possibly the right false vocal co rd. This could represent ossification of the superior aspect of the right arytenoid cartilage however underlying calcified lesion cannot be excluded. No obvious soft tissue lesion is seen at that locati on otherwise. Asymmetrically enlarged right pyriform sinus. Otherwise unremarkable nasopharynx, oropharynx, hypopha rynx, larynx, visualized portion of the trachea and esophagus. Unremarkable thyroid gland. Symmetrica l unremarkable parotid and submandibular salivary glands. No pathologically enlarged lymph nodes in t he neck. Dominant left vertebral artery with hypoplastic right vertebral artery. Scattered arterial atheroscle rotic calcifications. COPD changes and bilateral apical pulmonary fibrotic changes/scarring seen in t he lung apex bilaterally. Degenerative changes at C5-6 and C6-7 levels. IMPRESSION: 7.5 mm linear calcification is inseparable from the superior aspect of the right arytenoid cartilage as described above, which could represent ossification of the right arytenoid cartilage however under lying partially calcified lesion at that location cannot be excluded, for ENT consultation. Otherwise no definite suspicious lesion or lymphadenopathy seen in the neck. Incidental findings as d escribed above.
== END | disposition home or self-care (01) ==
LOC: RADCTMAIN 08:10
PROVIDERS: ATTEND Otolaryngology
DX: R22.1 Localized swelling, mass and lump, neck (principal)
CPT/HCPCS: 82565; 84520; 70491; 36415; Q9967

== ENCOUNTER → 2022-05-06 | Outpatient (CLI) | payer MEDICARE ==
--- NOTE | 2022-05-06 12:07 | XR ---
EXAMINATION TYPE: XR abdomen 1V DATE OF EXAM: 05/06/2022 12:00 PM INDICATION: Patient age:Male; 71 years old; Reason for study: R109 ABD PAIN; COMPARISON: None. TECHNIQUE: One radiographic view of the abdomen was obtained. FINDINGS: The bowel gas pattern is nonspecific without dilated loops of small or large bowel. There i s no evidence for organomegaly or pneumoperitoneum. The osseous structures are intact. No abnormal calcifications are present. Fecal material and gas are demonstrated throughout the colon and rectum. Multilevel disc degeneration changes are seen throughout the spine. IMPRESSION: 1. Nonspecific bowel gas pattern without radiographic evidence for acute process. 2. No acute osseous pathology.
== END | disposition home or self-care (01) ==
LOC: RADXRYALE 11:35
PROVIDERS: ATTEND Family Medicine
DX: R10.9 Unspecified abdominal pain (principal)
CPT/HCPCS: 74018

== ENCOUNTER → 2022-05-14 | Outpatient (CLI) | payer MEDICARE ==
--- NOTE | 2022-05-17 07:52 | XR ---
EXAMINATION TYPE: XR lumbosacral spine min 4V DATE OF EXAM: 05/15/2022 CLINICAL HISTORY: pain COMPARISON: NONE TECHNIQUE: Frontal, lateral, and oblique images of the lumbar spine are obtained. FINDINGS: There are 5 lumbar type vertebral bodies identified. The lumbar spine shows satisfactory alignment without evidence of acute fracture or dislocation. Vertebral body heights are within normal limits. Severe degenerative change L4-5 and L5-S1. Ventral and dorsal spondylosis. The overlying s oft tissue appears unremarkable. IMPRESSION: No acute fracture or dislocation is seen in the lumbar spine.ICD 10 NO FRACTURE, INITIAL EVALUATION
--- NOTE | 2022-05-17 07:52 | XR ---
EXAMINATION TYPE: XR Hip Complete LT DATE OF EXAM: 05/15/2022 CLINICAL HISTORY: pain TECHNIQUE: AP and frogleg views of the left hip are obtained. COMPARISON: None. FINDINGS: There is no acute fracture/dislocation evident. The joint space appears within normal li mits. The overlying soft tissue appears unremarkable. IMPRESSION: 1. There is no acute fracture or dislocation.ICD 10 NO FRACTURE, INITIAL EVALUATION
== END | disposition home or self-care (01) ==
LOC: RADXRYALE 16:00
PROVIDERS: ATTEND Family Medicine
DX: M25.552 Pain in left hip (principal); M54.42 Lumbago with sciatica, left side
CPT/HCPCS: 72110; 73502

== ENCOUNTER → 2022-05-28 | Outpatient (CLI) | payer MEDICARE ==
--- NOTE | 2022-05-29 08:31 | XR ---
EXAMINATION TYPE: XR chest 2V DATE OF EXAM: 05/28/2022 COMPARISON: 05/07/2016 INDICATION: Emphysema. Surgical clearance TECHNIQUE: Frontal and lateral views of the chest are obtained. FINDINGS: The heart size is normal. The pulmonary vasculature is normal. The lungs are clear. There is hyperinflation flattening the diaphragms compatible with COPD. Mild sc oliosis convexity to the left is present. IMPRESSION: 1. No acute pulmonary process. 2. COPD
== END | disposition home or self-care (01) ==
LOC: RADXRYALE 16:49
PROVIDERS: ATTEND Family Medicine
DX: Z01.818 Encounter for other preprocedural examination (principal); J44.9 Chronic obstructive pulmonary disease, unspecified
CPT/HCPCS: 71046

== ENCOUNTER → 2022-07-12 | Outpatient (CLI) | payer MEDICARE ==
--- NOTE | 2022-07-12 16:44 | XR ---
EXAMINATION TYPE: XR Hip Complete LT DATE OF EXAM: 07/12/2022 4:39 PM INDICATION: Patient age:Male; 71 years old; Reason for study: [id number] LT HIP PAIN; [facility]. COMPARISON: None. TECHNIQUE: The left hip was examined in the frontal and lateral projections FINDINGS: No evidence for acute process, joint dislocation or significant soft tissue swelling. There is mild osteophyte formation of the left acetabulum. Scattered pelvic phleboliths are noted. IMPRESSION: 1. No acute process. 2. Mild left hip osteoarthrosis.
== END | disposition home or self-care (01) ==
LOC: RADXRYALE 16:27
PROVIDERS: ATTEND Family Medicine
DX: M16.12 Unilateral primary osteoarthritis, left hip (principal)
CPT/HCPCS: 73502

== ENCOUNTER → 2022-12-19 | Outpatient (CLI) | payer MEDICARE ==
--- NOTE | 2022-12-19 10:57 | XR ---
EXAMINATION TYPE: XR cervical spine comp DATE OF EXAM: 12/19/2022 CLINICAL HISTORY: pain COMPARISON: NONE TECHNIQUE: Frontal, lateral, oblique, swimmers, and open mouth view of the cervical spine are obtaine d. FINDINGS: The cervical spine is visualized in its entirety from C1 thru the top of T1 level. It is s atisfactory in alignment without evidence of acute fracture or dislocation. The pre-vertebral soft t issue appears within normal limits. Moderate degenerative disc space narrowing with spondylosis exten ding from C4 through C6 7. Moderate to severe bilateral neural foraminal encroachment at C5-6 and C6- 7. Anterior subluxation chronic in appearance at C4-5 measuring 2 mm. IMPRESSION: Advanced degenerative changes as noted above.
== END | disposition home or self-care (01) ==
LOC: RADXRYALE 10:34
PROVIDERS: ATTEND Family Medicine
DX: M47.812 Spondylosis without myelopathy or radiculopathy, cervical region (principal); R29.2 Abnormal reflex; R20.2 Paresthesia of skin
CPT/HCPCS: 72050

== ENCOUNTER → 2022-12-25 | Outpatient (CLI) | payer MEDICARE ==
--- NOTE | 2022-12-25 19:15 | MR ---
EXAMINATION TYPE: MR cervical spine wo con DATE OF EXAM: 12/25/2022 INDICATION: Patient age:Male; 72 years old; Reason for study: M54.2,M62.81, R20.2,R29.2. Prior on synapse, neck pain with headaches and left arm pain for 5 years COMPARISON: 07/16/2017, 11/28/2020 TECHNIQUE: Multi planar, multi sequence imaging was performed utilizing: T1-weighted, T2-weighted, an d turbo inversion recovery imaging of the cervical spine. IV Contrast: None FINDINGS: Alignment: The cervical vertebral bodies have preserved heights. Straightening of the cervical alignm ent. Bones: Bone signal is within normal limits. No abnormal bone marrow edema on inversion recovery seque nces. Cord: The spinal cord is unremarkable with regards to their signal intensity and morphology. Discs: Multilevel disc desiccation is present. C2-C3: No significant disc pathology. The spinal canal is patent. No neural foraminal stenosis. C3-C4: A disc osteophyte complex is present with mild spinal canal stenosis. Bilateral facet and unc overtebral joint arthropathy are present with mild to moderate bilateral neural foraminal stenosis. C4-C5: A disc osteophyte complex is present which minimally narrows the ventral subarachnoid space. Bilateral facet and uncovertebral joint arthropathy are present with moderate bilateral neural serena inal stenosis. C5-C6: A disc osteophyte complex is present with mild spinal canal stenosis. Bilateral facet and unc overtebral joint arthropathy are present with severe bilateral neural foraminal stenosis. C6-C7: Central disc protrusion that indents upon the spinal cord. Bilateral facet and uncovertebral joint arthropathy are present with severe bilateral neural foraminal stenosis. C7-T1: No significant disc pathology. The spinal canal is patent. Bilateral facet and uncovertebral joint arthropathy are present with mild bilateral neural foraminal stenosis. Other: None. IMPRESSION: Similar exam with multilevel disc degeneration changes with central disc herniation at C6-C7. There i s severe C5-C6 and C6-7 neural foraminal stenosis similar to prior.
== END | disposition home or self-care (01) ==
LOC: RADMRIMAIN 16:55
PROVIDERS: ATTEND Family Medicine
DX: M50.223 Other cervical disc displacement at C6-C7 level (principal); M50.323 Other cervical disc degeneration at C6-C7 level; M47.813 Spondylosis without myelopathy or radiculopathy, cervicothoracic region; M99.71 Connective tissue and disc stenosis of intervertebral foramina of cervical region; R29.2 Abnormal reflex
CPT/HCPCS: 72141

== ENCOUNTER 2023-03-21 09:11 | Day surgery (SDC) | payer MEDICARE ==
--- NOTE | 2023-03-20 19:00 | HP ---
HISTORY AND PHYSICAL CHIEF COMPLAINT: Lesion of the right ear. HISTORY OF PRESENT ILLNESS: The patient is a 72-year-old male, who was recently seen in my office complaining of having a sore on his right ear that has been there for approximately one year. The patient's area does not bleed, but it does tend to scab over. At times, it itches. In addition to this, it is very painful to lay on. He denies any drainage or injury to the ear. The patient states that he quit smoking last year. At the time that the patient was seen in my office, clinical examination of the ear revealed that the patient had approximately a 0.5 mm very painful maculopapular lesion, which is located on the anti-helix of the right ear. The area tends to be more tender inferiorly than superiorly. No other suspicious lesions are noted. It was recommended that the patient undergo a wedge excision of this lesion, at which time the borders will be labeled for possible malignancy. His surgery will be done under general anesthesia. PAST MEDICAL HISTORY: Reveals that he is a nonsmoker since last year. ALLERGIES: He has no allergies to medications. PREVIOUS SURGERIES: Include bilateral herniorrhaphy, colonoscopy, total right knee replacement, bilateral cataract surgery, and lower back surgery. He has also had a septoplasty and a suspension microlaryngoscopy by Dr. Segura. CURRENT MEDICATIONS: Include, 1. Budesonide inhalation/suspension. 2. Ipratropium bromide/albuterol. 3. Losartan. 4. [place]. 5. Trazodone. 6. Prozac. 7. Crestor. 8. Voltaren. REVIEW OF SYSTEMS: Reveals, CARDIOVASCULAR SYSTEM: Positive for hypertension. RESPIRATORY SYSTEM: Positive for COPD/emphysema. METABOLIC/ENDOCRINE: Positive for hypercholesterolemia. MUSCULOSKELETAL: Positive for osteoarthritis. The remainder of the review of systems is unremarkable. PHYSICAL EXAMINATION: GENERAL: This patient is a 72-year-old male, who was alert and cooperative. HEENT: The patient is normocephalic. Tympanic membranes are normal. Eye examination of the right ears as described above. It will not be repeated here. This lesion is suspicious for possible malignancy. The left ear is unremarkable. Pupils are equal, round, reactive to light and accommodation. Extraocular movements within normal limits. Intranasal examination reveals mild septal deviation with compensatory hypertrophy of the inferior turbinates with moderate amount of mucus on the mucous membrane draining down posterior pharynx. Examination of oropharynx and remainder of the head and neck examination is within normal limits. CHEST/CARDIOVASCULAR: Both lung small are clear, though lung sounds are distant. The patient is in regular sinus rhythm. S1 and S2 are present without any murmurs, S3s, or S4s. Peripheral pulses are bilaterally symmetrical. ABDOMEN: There is no evidence of any masses, megaly, or tenderness. The abdomen is soft. SKIN: Unremarkable. MUSCULOSKELETAL/NEUROLOGICAL: Within normal limits. RECTAL: Deferred at this time because the patient has this done on a regular basis at his family physician's office. The remainder of physical exam is unremarkable. ASSESSMENT: Lesion of the right ear. PLAN: The patient is scheduled to undergo a wedge excision of lesion of the right ear under general anesthesia in a.m. Attention, RNs in the pre-surgical area: I have ordered for this patient to receive 2 g of Ancef IV to be given once an intravenous line has been established. If the pharmacy department sends a different prophylactic surgical antibiotic, please cancel that order and return that medication to the pharmacy department. Also make sure that the patient's account is credited appropriately. I have also ordered for the patient to receive 1000 mg of Ofirmev IV to be given once an intravenous line has been established. I have discussed the risks, benefits and alternative therapies for the above-mentioned procedure and for both sedation/analgesia as well as necessary blood product administration, if indicated, as they pertain to this patient. The patient has indicated his understanding and acceptance of the risks and procedures discussed. MMODL / IJN: [id number] /
[~2023-03-21 09:11] MED LIST changes: -LACTATED RINGERS 1,000 ML IV SCH; -LIDOCAINE 1% (10MG/ML) FOR IV START INTRADERMA PRN; +Pre Op ABX Message 1 EACH MISC MISCELLANE ONE
[2023-03-21] MEDS ORDERED: MIDAZOLAM 2 MG/2 ML VIAL IV PRN (09:24)
[2023-03-21] MEDS ORDERED: DEXAMETHASONE SOD PHOSPHATE 4 MG/ML 1 ML VIAL IV ONE (09:24)
[2023-03-21] MEDS ORDERED: LACTATED RINGERS 1,000 ML IV SCH (09:24)
[2023-03-21] MEDS ORDERED: ONDANSETRON 4 MG/2 ML VIAL IVP ONE (09:24)
[2023-03-21 09:38] VITALS: TEMP 98.3
[2023-03-21] MEDS ORDERED: ACETAMINOPHEN IV (For NPO) 1,000 MG in EMPTY BAG 1 BAG IVPB ONE (10:30)
[2023-03-21] MEDS ORDERED: LIDOCAINE 2% INJ 20 MG/ML (2 ML VIAL) ONE (11:13)
[2023-03-21] MEDS ORDERED: ROCURONIUM 10 MG/ML (5 ML VIAL) IV ONE (11:13)
[2023-03-21] MEDS ORDERED: PHENYLEPHRINE-0.9% NACL SYG 1,000 MCG/10 ML SYRINGE ONE (11:13)
[2023-03-21] MEDS ORDERED: ePHEDrine 50 MG/ML 1 ML VIAL ONE (11:13)
[2023-03-21] MEDS ORDERED: fentaNYL (PF) 50 MCG/ML 2 ML AMP ONE (11:13)
[2023-03-21] MEDS ORDERED: GLYCOPYRROLATE 0.2 MG/ML 2 ML VIAL ONE (11:13)
[2023-03-21] MEDS ORDERED: NEOSTIGMINE 1 MG/ML 10 ML VIAL ONE (11:13)
[2023-03-21] MEDS ORDERED: PROPOFOL 10 MG/ML 20 ML VIAL IV ONE (11:13)
[2023-03-21] MEDS ORDERED: SUCCINYLCHOLINE CHLORIDE 200 MG/10 ML VIAL IV ONE (11:13)
[2023-03-21] MEDS ORDERED: BACITRACIN ZINC 500 UNIT/GM OINT 28.4 GM TUBE TOPICAL ONE (12:56)
[2023-03-21] MEDS ORDERED: LACTATED RINGERS 1,000 ML IV ONE (12:57)
[2023-03-21] MEDS: HYDROmorphone 0.5 MG/0.5 ML SYRINGE IVP PRN ×4 (13:14→13:56)
[2023-03-21] MEDS ORDERED: DEXAMETHASONE SOD PHOSPHATE 10 MG/ML 1 ML VIAL INTRAARTIC ONE (14:20)
--- NOTE | 2023-03-21 14:30 | P.ANPRN ---
Procedure Note - Anesthesia - Nerve Block Performed Right Other (see comment) Single Time Out Performed: Yes (Right auricular block) Date of Procedure: 03/21/23 Procedure Start Time: 14:20 Procedure Stop Time: 14:25 Location of Patient: Phase I Indication: Acute Post-Operative Pain, Requested by Surgeon Sedation Type: Sedate with meaningful contact maintained Preparation: Sterile Prep Position: Sitting Catheter: None Needle Types: Facet Needle Gauge: Other (see comment) (25 g) Ultrasound used to visualize needle placement: No Ultrasound used to observe medication spread: No Injectate: 0.5% Ropivacaine (see comment for volume) (17 ml + decadron 4 mg) Blood Aspirated: No Pain Paresthesia on Injection Noted: No Resistance on Injection: Normal Image Stored and Saved: Yes Events: Uneventful and Well Tolerated
[2023-03-21 15:23] VITALS: BP 164/82; PULSE 69; RESP 17
--- NOTE | 2023-03-23 16:20 | OP ---
OPERATIVE REPORT DATE OF SERVICE : 03/21/2023 PREOPERATIVE DIAGNOSIS: 5 mm lesion of the antihelix of the right ear. POSTOPERATIVE DIAGNOSIS: 5 mm lesion of the antihelix of the right ear; final pathology is pending, suspect malignancy. ANESTHESIA: General. OPERATIVE PROCEDURE: Wedge excision of 5 mm lesion of the antihelix of the right ear with complex closure. COMPLICATIONS: None. ESTIMATED BLOOD LOSS: Less than 25 mL. DESCRIPTION OF PROCEDURE: The patient is placed on the operating table in a supine position. After uneventful induction and endotracheal intubation, a satisfactory general anesthesia was obtained. Next, the patient's right ear was prepped and draped in usual customary fashion. Approximate operating time was an extended 2 hours. Next, the lesion in question which was located on the antihelix of the right ear was exposed and a proposed wedge excision of this lesion with adequate monitoring was outlined using a Nuve marking pen. No local anesthesia was used. Next, using an #11 stab blade and scalpel, the proposed wedge excision was started at the apex of the wedge. It was carried out in a through and through manner, extending to the superior helix of the right ear. This excision was from skin to skin, through and through. A similar incision was carried out beginning at the apex along the second limb of the wedge and it was carried out in the same fashion, that it is in a [id number] skin to skin fashion. The entire specimen, which consisted of skin, cartilage, and skin was subsequently labeled in the following manner: Black suture for the superior margin, white suture for the inferior margin, purple suture for the medial margin, and finally, a white suture for the lateral margin of the specimen. The specimen was then sent to pathology for permanent sectioning in formalin. Hemostasis was carried out using electrocautery. Because of the extent of the excision, it was necessary to perform triangles to complete this complex closure. By creating the Burow's triangles in the usual fashion, this took some of the strain off the cartilage and allowed the defect to be closed with less tension. Initial closure of the defect was started by placing several 5-0 rapid absorbing Vicryl sutures and 4-0 Vicryl sutures in an interrupted, buried fashion to approximate the cartilage. Next, the anterior skin was closed, using mainly 4-0 rapid absorbing Vicryl sutures in an interrupted fashion. These were buttressed with 4-0 chromic sutures in an interrupted buried fashion. The edges of the helical rim were approximated as well as the remaining antihelical fold, edges were approximated to re- establish the natural contour of the ear. Next, the posterior closure was carried out in the same fashion, using a combination of 4-0 rapid absorbing Vicryl sutures and 4-0 chromic sutures in an interrupted fashion. It is to be noted that the patient does not have an earlobe, that is to say, the earlobe is attached directly to the patient's face. Estimated blood loss was between 20 and 25 mL. At this point, the procedure was terminated because of the complex closure with the Burow's triangle. This procedure took approximately an extended 2 hours, which is beyond the normal time for excision and closure of this type of lesion. The lesion is suspicious for malignancy. At this point, the procedure was terminated. There were no intraoperative complications. The patient tolerated the procedure well and was returned to the recovery room in satisfactory condition. Final pathology is pending. MMODL / IJN: [id number] /
== END 2023-03-21 16:05 | disposition home or self-care (01) ==
LOC: OR 09:11
PROVIDERS: ATTEND Otolaryngology
DX: H61.891 Other specified disorders of right external ear (principal); G89.18 Other acute postprocedural pain; I10 Essential (primary) hypertension; J44.9 Chronic obstructive pulmonary disease, unspecified; E78.00 Pure hypercholesterolemia, unspecified; M19.90 Unspecified osteoarthritis, unspecified site; Z96.653 Presence of artificial knee joint, bilateral; Z79.899 Other long term (current) drug therapy
CPT/HCPCS: 69105; 64450; 88305; J0330; J1100 ×2; J2710; J2405; J3010; J0131; J2704; J1170; J2001

== ENCOUNTER → 2023-09-11 | Outpatient (CLI) | payer MEDICARE ==
--- NOTE | 2023-09-14 20:47 | PE ---
EXAMINATION TYPE: PET CT fusion skull to thigh DATE OF EXAM: 09/11/2023 CLINICAL INDICATION:Male, 72 years old with history of C44.202 NEOPLASM SKIN; TECHNIQUE: Following the intravenous administration of 827 mCi of F-18 FDG, whole body images are p erformed from the skull base to the midthigh. Images are reviewed on the computer in the coronal, ax ial, and sagittal planes. Reconstructed rotating images are created on independent workstation and r eviewed on the computer. A non-contrast CT is performed in conjunction with the PET scan. Glucose l evel 92 mg/dL CT DLP: 300.2 mGycm, Automated exposure control for dose reduction was used. COMPARISON: CT 12/25/2021, 11/28/2021, PET/CT None, FINDINGS: Mediastinal SUV mean is 2.4. Hepatic parenchyma SUV mean is 3.3. SKULL BASE AND NECK: * Focal radiotracer uptake within the right oropharynx mucosa near the base of the tongue on the rig ht max SUV 5.1. CHEST, MEDIASTINUM, AND HILAR REGION: No suspicious radiotracer activity. ABDOMEN AND PELVIS: No suspicious radiotracer activity. MUSCULOSKELETAL STRUCTURES: * No suspicious radiotracer activity. * Small focus of uptake near the rectus femoris origin on the left suggestive of muscle strain. Max SUV 5.4. No abnormal uptake seen within the epidermis/dermis. No location was given for skin malignancy locati on. OTHER CT: Bilaterally aphakia. Atherosclerosis of the arterial vasculature. Calcifications at the car otid bifurcations and within the coronary arteries. Aortic valve leaflet calcifications. Infrarenal a bdominal aortic aneurysm measuring up to 3.6 cm. Scattered colonic diverticula. Moderate to large sto ol burden throughout the colon. IMPRESSION: 1. Right lateral oral pharynx focus of abnormal FDG activity within the mucosa near the base of the tongue on the right. No evidence for lymphadenopathy or other abnormal FDG activity within the head a nd neck. 2. Infrarenal abdominal aortic aneurysm up to 3.6 cm
== END | disposition home or self-care (01) ==
LOC: RADPETMAIN 14:25
PROVIDERS: ATTEND Family Medicine
DX: C44.202 Unspecified malignant neoplasm of skin of right ear and external auricular canal (principal); I71.43 Infrarenal abdominal aortic aneurysm, without rupture; R63.4 Abnormal weight loss
CPT/HCPCS: 78815; A9552

== ENCOUNTER 2023-09-12 08:24 | Day surgery (SDC) | payer MEDICARE ==
[2023-09-09 10:38] VITALS: BMI 20.9
--- NOTE | 2023-09-11 18:38 | HP ---
HISTORY AND PHYSICAL CHIEF COMPLAINT: Lesion of the right ear. HISTORY OF PRESENT ILLNESS: The patient is a 72-year-old male, who was seen in my office complaining of having a sore on his right ear. 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 This sore is located on the antihelix of the right ear. At the time that the patient was seen in the office, although the lesion appeared to be suspicious, it was decided to try a conservative course and treat the patient with topical antibiotics for approximately 3 weeks. After 3 weeks, it was noted that the lesion did not appear to be healing, and it was noted to be quite tender, and therefore, it was recommended the patient undergo an excision of this lesion under general anesthesia. PAST MEDICAL HISTORY: Reveals that the patient has no known allergies to medications. He is a nonsmoker. PREVIOUS SURGERIES: Include a wedge resection of a malignant lesion of the right ear, bilateral herniorrhaphy, colonoscopy, total right knee replacement, bilateral cataract surgery, and lower back surgery. He has also had a septoplasty and suspension microlaryngoscopy by Dr. Segura. CURRENT MEDICATIONS: Include: 1. Budesonide inhalations/suspension. 2. Losartan. 3. [place] 10/325. 4. Trazodone. 5. Prozac. 6. Crestor. 7. Voltaren. 8. Ipratropium bromide/albuterol updraft. REVIEW OF SYSTEMS: CARDIOVASCULAR: Positive for hypertension. RESPIRATORY: Positive for COPD/emphysema. METABOLIC/ENDOCRINE: Positive for hypercholesterolemia. MUSCULOSKELETAL: Positive for osteoarthritis. The remainder of the review of systems is essentially unremarkable. PHYSICAL EXAMINATION: GENERAL: This patient is a 72-year-old male, who was alert and cooperative. HEENT: The patient is normocephalic. Tympanic membranes are normal. Middle ear spaces are free of any fluid or infection. Pupils equal, round, reactive to light and accommodation. Extraocular movements within normal limits. Intranasal examination reveals moderate to severe septal deviation with compensatory hypertrophy of the inferior turbinates and moderate amount of mucus on the mucous membrane and draining down the posterior pharynx. Examination of oropharynx and palpation of neck is negative for neck masses or lymphadenopathy. Attention to the right ear reveals that there is evidence of a small painful to palpation lesion, which is located on the antihelix of the right ear. The remainder of the head and neck exam is unremarkable. CHEST/CARDIOVASCULAR: Both lung small are clear to percussion and auscultation. The patient is in regular sinus rhythm. S1, S2 are present without evidence of any murmurs. Peripheral pulses are bilaterally symmetrical and within normal limits. ABDOMEN: There is no evidence any masses, megaly, or tenderness. The abdomen is soft. SKIN: Unremarkable. MUSCULOSKELETAL: Within normal limits. NEUROLOGIC: Within normal limits. RECTAL: A definitive rectal exam is deferred at this time because the patient has this done on a regular basis at his family physician's office. The remainder of physical exam is unremarkable. IMPRESSION: Lesion of the right auricle/ear. PLAN: The patient is scheduled to undergo excision of lesion of the right ear under general anesthesia. Attention, RNs in the pre-surgical area. I have ordered for this patient to receive 1000 mg of Ofirmev IV to be given once an intravenous line has been established. In addition to this, I have ordered for the patient to receive 2 g of Ancef IV to be given once an intravenous line has been established. If the Pharmacy Department sends a different pre-surgical prophylactic antibiotic to the pre-surgical area for this patient, please cancel that order and return the medication to the Pharmacy Department. Also make sure that the patient's account is credited appropriately. I have discussed the risks, benefits and alternative therapies for the above-mentioned procedure and for both sedation/analgesia as well as necessary blood product administration, if indicated, as they pertain to this patient. The patient has indicated his understanding and acceptance of the risks and procedures discussed. MMODL / IJN: [id number] /
[2023-09-12] MEDS ORDERED: ONDANSETRON 4 MG/2 ML VIAL IVP ONE (08:46)
[2023-09-12] MEDS ORDERED: HYDROmorphone 0.5 MG/0.5 ML SYRINGE IVP PRN (08:46)
[2023-09-12] MEDS ORDERED: DEXAMETHASONE SOD PHOSPHATE 4 MG/ML 1 ML VIAL IV ONE (08:46)
[2023-09-12] MEDS ORDERED: LACTATED RINGERS 1,000 ML IV SCH (08:46)
[2023-09-12] MEDS ORDERED: ACETAMINOPHEN IV (For NPO) 1,000 MG in EMPTY BAG 1 BAG IVPB ONE (09:45)
[2023-09-12] MEDS ORDERED: ePHEDrine 50 MG/ML 1 ML VIAL ONE (10:07)
[2023-09-12] MEDS ORDERED: SUCCINYLCHOLINE CHLORIDE 200 MG/10 ML VIAL IV ONE (10:07)
[2023-09-12] MEDS ORDERED: fentaNYL (PF) 50 MCG/ML 2 ML AMP ONE (10:07)
[2023-09-12] MEDS ORDERED: PROPOFOL 10 MG/ML 20 ML VIAL IV ONE (10:07)
[2023-09-12] MEDS ORDERED: LIDOCAINE 1% INJ 10MG/ML (20 ML MDV) ONE (10:07)
[2023-09-12] MEDS ORDERED: DEXAMETHASONE SOD PHOSPHATE 10 MG/ML 1 ML VIAL ONE (10:07)
[2023-09-12] MEDS ORDERED: BUPIVACAINE (PF) 0.5% 30 ML VIAL SQ ONE ×2 (10:12)
[2023-09-12] MEDS ORDERED: BACITRACIN ZINC 500 UNIT/GM OINT 28.4 GM TUBE TOPICAL ONE (12:16)
[2023-09-12 12:46] VITALS: TEMP 97.3
[2023-09-12] MEDS ORDERED: HYDROcodone/APAP 10-325MG 1 EACH TAB ONE (13:22)
[2023-09-12] MEDS ORDERED: HYDROcodone/APAP 10-325MG 1 EACH TAB PO ONE (13:23)
[2023-09-12 13:34] VITALS: RESP 16
[2023-09-12 13:58] VITALS: BP 163/86; PULSE 76
--- NOTE | 2023-09-15 01:50 | OP ---
OPERATIVE REPORT DATE OF SERVICE : 09/12/2023 PREOPERATIVE DIAGNOSIS: A 5 to 6 mm lesion of the anti-helix of the right ear/pinna. POSTOPERATIVE DIAGNOSIS: A 5 to 6 mm lesion of the anti-helix of the right ear/pinna, final pathology is pending. ANESTHESIA: General. PROCEDURE PERFORMED: Wedge excision of 5 to 6 mm lesion of the antihelix of the right ear/pinna with complex closure using multiple Burow's triangles. COMPLICATIONS: None. ESTIMATED BLOOD LOSS: Less than 25 mL. INDICATIONS: This patient was a 72-year-old male who had previously undergone excision of a lesion of the right ear in March of 2023. On a recent office visit, it was noticed that a similar lesion was located near the previous excision site. It was recommended that the patient undergo wedge excision of this lesion. The patient was placed on the operating table in a supine position and after uneventful induction and endotracheal intubation, satisfactory general anesthesia was obtained. Next, the patient's right ear was prepped and draped in the usual and customary fashion. Following this, because the patient has significant postoperative pain, an auricular nerve block was performed using approximately 5 mL of 0.5% Marcaine solution without epinephrine. Care was taken not to infiltrate anywhere near the right facial nerve. Next, the ear was grasped and pulled laterally, thus exposing the lesion completely. The proposed wedge excision was outlined using a Codman marking pen. In addition to this, wedge excision being outlined, multiple Burow's triangles were also outlined in the usual and customary fashion. Next, using a #11 stab blade, the incision was began at the apex of the wedge in a through and through manner, continuing to and cutting through the superior helix superiorly. A similar incision using a #11 stab blade was again carried out beginning at the apex to and doing so in a through and through fashion and continuing through cartilage skin to the superior helix thus freeing the wedge up completely. The entire specimen was removed and was tagged as follows. A black suture was used to tag the superior aspect of the lesion, a clear suture was used to tag the medial aspect of the lesion. A blue suture was used to tag the lateral portion of the incision of the specimen and finally a purple suture was used to tag the inferior most aspect of the specimen. The specimen was then sent to pathology in formalin for permanent sectioning. Hemostasis was obtained by using a needle electrocautery set at approximately 7. Care was taken not to injure or excessively cauterize any of the cartilage. Next again using the #11 stab blade, the multiple Burow's triangles, which had been previously drawn and the wedge site was subsequently excised in a through and through fashion and these were discarded. These Burow's triangles were used in an effort to allow the closure to be done with less tension. Next, the closure was started initially by closing the Burow's triangles in a 3-layer fashion using 5-0 rapid absorbing Vicryl in interrupted fashion to carefully approximate the cartilage and next 4-0 rapid absorbing Vicryl was used to approximate the skin layer both anteriorly and posteriorly. All of the Burow's triangles were closed in this fashion, and this allowed the ear to resume a more natural position despite the large specimen excised. Next, remaining portion of the wound was then closed again in a three-layer complex fashion by closing the cartilage with multiple 5-0 rapid absorbing Vicryl in an interrupted buried fashion beginning inferiorly and working out superiorly to the superior helix. The helical rim was carefully joined in an effort to prevent any notching using a 5-0 rapid-absorbing Vicryl in interrupted fashion. Next, the anterior skin and subsequently the posterior skin of the wound were closed using 4-0 rapid absorbing Vicryl in interrupted fashion. Again, the closure was done both anteriorly and posteriorly. At this point, the procedure was terminated. Estimated operating time was approximately 2 hours and 15 minutes. This was somewhat extended from the usual 1 hour operating time due to the necessity of multiple Burow's triangles to effect a tensionless closure. Bacitracin ointment was applied both anteriorly and posteriorly and no dressing was applied to the wound. In addition to this, there was a small area located in the scaphae of the ear of the incision, where the closure was further reinforced using Dermabond tissue glue. At this point, the procedure was terminated. Intraoperative blood loss was less than 25 mL. There were no intraoperative complications. The patient was returned to recovery room in satisfactory condition. Again estimated operating time was 2 hours and 15 minutes, which is beyond the normal operating time. Final pathology is pending. MMODL / IJN: [id number] /
== END 2023-09-12 13:55 | disposition home or self-care (01) ==
LOC: OR 08:24
PROVIDERS: ATTEND Otolaryngology
DX: H61.191 Noninfective disorders of pinna, right ear (principal); I10 Essential (primary) hypertension; E78.5 Hyperlipidemia, unspecified; J44.9 Chronic obstructive pulmonary disease, unspecified; F17.200 Nicotine dependence, unspecified, uncomplicated; M19.90 Unspecified osteoarthritis, unspecified site; Z96.653 Presence of artificial knee joint, bilateral; Z98.42 Cataract extraction status, left eye; Z98.41 Cataract extraction status, right eye; Z98.890 Other specified postprocedural states; Z79.899 Other long term (current) drug therapy
CPT/HCPCS: 69110; 88305; J0330; J1100 ×2; J0690; J2405; J2001; J3010; J0131; J2704; J0665

== ENCOUNTER 2023-10-17 09:39 | Day surgery (SDC) | payer MEDICARE ==
--- NOTE | 2023-10-16 19:09 | HP ---
HISTORY AND PHYSICAL CHIEF COMPLAINT: Base of tongue lesion. HISTORY OF PRESENT ILLNESS: The patient is a 73-year-old male who is well known to my office, who was recently seen following a PET scan. The PET scan showed a suspicious area of the base of tongue, which was concerning for possible malignancy. The patient has been experiencing persistent unexpected weight loss. The patient smokes approximately 1/2 to a pack of cigarettes per day, but he is trying to quit. At the time that the patient was seen in my office, clinical examination of the oropharynx was unremarkable. An attempted indirect laryngoscopy was not possible because of a hyperactive gag reflex. It was therefore recommended the patient undergo a suspension microlaryngoscopy with multiple blind biopsies of the right base of tongue under general anesthesia. PAST MEDICAL HISTORY: He is currently trying to quit smoking. CURRENT MEDICATIONS: Include budesonide inhalations, losartan, Warren 10/325, trazodone, Prozac, Crestor, Voltaren, ipratropium bromide. REVIEW OF SYSTEMS: CARDIOVASCULAR: Positive for hypertension. RESPIRATORY: Positive for COPD/emphysema. METABOLIC/ENDOCRINE: Positive for hypercholesterolemia. MUSCULOSKELETAL: Positive for osteoarthritis. 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 He has also had a suspension microlaryngoscopy with Dr. Segura and a septoplasty. PHYSICAL EXAMINATION: GENERAL: This patient is a pleasant -frar-hcf male who is alert and cooperative. HEENT: The patient is normocephalic. Tympanic membranes are normal. Middle ear spaces are free of any fluid or infection. Pupils equal, round, reactive to light and accommodation. Extraocular movements are within normal limits. Intranasal examination reveals moderate septal deviation with compensatory hypertrophy of inferior turbinates. Examination of the oropharynx, findings are as described above in the history of present illness and will not be repeated here. NECK: Palpation of the neck is negative for neck masses. Cranial nerves 2 through 12, remainder of the head and neck exam is unremarkable. CHEST/CARDIOVASCULAR: Both lung small are clear to percussion and auscultation. The patient is in regular sinus rhythm. S1, S2 are present without any murmurs, S3s, or S4s. Peripheral pulses are bilaterally symmetrical. ABDOMEN: There is no evidence any masses, megaly, or tenderness. The abdomen is soft. SKIN: Unremarkable. MUSCULOSKELETAL/NEUROLOGICAL: Unremarkable. Rectal: Rectal exam is deferred at this time because the patient has done this on a regular basis at his family physician's office. The remainder of physical exam is unremarkable. IMPRESSION: Right base of tongue lesion. PLAN: The patient is scheduled to undergo suspension microlaryngoscopy with multiple black biopsies of the right base of tongue under general anesthesia in the a.m. Attention, RNs in the pre-surgical area: I have ordered for this patient to receive 1000 mg of Ofirmev IV to be given once an intravenous line has been established. I have also ordered for this patient to receive 2 g of Ancef IV once an IV has been established. If the pharmacy department sends a different pre-surgical prophylactic antibiotic to the pre-surgical area for this patient, please return that medication to the pharmacy department and cancel that order. Also, please make sure that the patient's account is credited appropriately. I have discussed the risks, benefits and alternative therapies for the above- mentioned procedure and for both sedation/analgesia as well as necessary blood product administration, if indicated, as they pertain to this patient. The patient has indicated his understanding and acceptance of the risks and procedures discussed. MMODL / IJN: [id number] / MTDD
[2023-10-17] MEDS ORDERED: ONDANSETRON 4 MG/2 ML VIAL ONE (10:35)
[2023-10-17] MEDS: LACTATED RINGERS 1,000 ML IV ONE (10:40)
[2023-10-17] MEDS: ONDANSETRON 4 MG/2 ML VIAL IVP ONE (10:45)
[2023-10-17] MEDS: DEXAMETHASONE SOD PHOSPHATE 4 MG/ML 1 ML VIAL IVP ONE (10:45)
[2023-10-17] MEDS: ACETAMINOPHEN IV (For NPO) 1,000 MG in EMPTY BAG 1 BAG IVPB ONE (10:51)
[2023-10-17 10:57] LABS: Glucose,Whole Blood 110 mg/dL (70-110)
[2023-10-17] MEDS ORDERED: LIDOCAINE 1% INJ 10MG/ML (20 ML MDV) ONE (11:32)
[2023-10-17] MEDS ORDERED: PROPOFOL 10 MG/ML 20 ML VIAL IV ONE (11:32)
[2023-10-17] MEDS ORDERED: ROCURONIUM 10 MG/ML (5 ML VIAL) IV ONE (11:32)
[2023-10-17] MEDS ORDERED: PHENYLEPHRINE 10 MG/ML VIAL ONE (11:32)
[2023-10-17] MEDS ORDERED: fentaNYL (PF) 50 MCG/ML 2 ML AMP ONE (11:32)
[2023-10-17] MEDS ORDERED: DEXAMETHASONE SOD PHOSPHATE 10 MG/ML 1 ML VIAL ONE (11:32)
[2023-10-17] MEDS ORDERED: GLYCOPYRROLATE 0.2 MG/ML 2 ML VIAL ONE (11:32)
[2023-10-17] MEDS ORDERED: NEOSTIGMINE 1 MG/ML 10 ML VIAL ONE (11:32)
[2023-10-17] MEDS ORDERED: SUCCINYLCHOLINE CHLORIDE 200 MG/10 ML VIAL IV ONE (11:32)
[2023-10-17] MEDS ORDERED: MIDAZOLAM 2 MG/2 ML VIAL ONE (11:32)
[2023-10-17] MEDS: HYDROmorphone 0.5 MG/0.5 ML SYRINGE IVP ONE ×2 (12:35→12:43)
[2023-10-17 13:07] VITALS: RESP 16; TEMP 97.4
[2023-10-17 13:36] VITALS: BP 142/61; PULSE 73
--- NOTE | 2023-10-20 18:09 | OP ---
OPERATIVE REPORT DATE OF SERVICE : 10/17/2023 PREOPERATIVE DIAGNOSIS: Right base of tongue lesion. POSTOPERATIVE DIAGNOSIS: Right base of tongue lesion, final pathology is pending. ANESTHESIA: General. PROCEDURE: Suspension microlaryngoscopy with multiple blind biopsies of the right base of tongue. COMPLICATIONS: None. ESTIMATED BLOOD LOSS: Less than 5 mL. DESCRIPTION OF PROCEDURE: The patient was placed on the operating table in supine position and after uneventful induction and endotracheal intubation, satisfactory general anesthesia was obtained. Next, the patient's head was draped in the usual customary fashion. Following this, the laryngoscope was introduced into the patient's oropharynx and the entire hypopharynx including the right and left piriform sinuses, vallecula, and left base of tongue was inspected and found to be free of any suspicious lesions. Next, the tip of the laryngoscope was positioned at the patient's laryngeal introitus and was subsequently suspended on the patient's chest using the Lewy apparatus. Inspection of the both true vocal cords revealed the patient had a suspicious polypoid like mass located in the right laryngeal ventricle in the area of the right true vocal cord. This lesion was subsequently biopsied and sent to Pathology in formalin for permanent sectioning. Next, the laryngoscope was positioned onto the patient's right base of tongue and using the Zeiss operating microscope and under direct magnified visualization, inspection of the right base of tongue did not reveal any obvious suspicious lesions or exophytic lesions. Therefore, using a large straight and also a large upbiting microlaryngeal forceps, multiple blind biopsies were randomly taken of the right base of the tongue. The specimens were sent in formalin to Pathology for permanent sectioning. At this point, the procedure was terminated. The patient was given 10 mg of Decadron intraoperatively to reduce any postoperative laryngeal edema or edema of the tongue. At this point, the procedure was terminated. The patient tolerated the procedure well and was returned to recovery room in satisfactory condition. Final pathology of all biopsies are pending. MMODL / IJN: [id number] /
== END 2023-10-17 13:52 | disposition home or self-care (01) ==
LOC: OR 09:39
PROVIDERS: ATTEND Otolaryngology
DX: K14.0 Glossitis (principal); K14.8 Other diseases of tongue; I10 Essential (primary) hypertension; E78.5 Hyperlipidemia, unspecified; J44.9 Chronic obstructive pulmonary disease, unspecified; M19.90 Unspecified osteoarthritis, unspecified site; F17.210 Nicotine dependence, cigarettes, uncomplicated; Z79.899 Other long term (current) drug therapy; Z79.51 Long term (current) use of inhaled steroids; Z85.22 Personal history of malignant neoplasm of nasal cavities, middle ear, and accessory sinuses
CPT/HCPCS: 88305; 31536; J2250; J0330; J1100 ×2; J2710; J2405; J2001; J3010; J0131; J2704; J1170; J2371

== ENCOUNTER → 2023-11-14 | Outpatient (CLI) | payer MEDICARE ==
--- NOTE | 2023-11-14 12:49 | FL ---
ESOPHOGRAM. HISTORY: Dysphagia Esophagram was performed per the air contrast technique. The patient swallowed barium and effervesce nt crystals without difficulty or delay. Esophageal peristalsis and motility appear to be within normal limits. There is no evidence for filling defect, mass or diverticulum. No hiatal hernia seen. Subsequently single contrast cervical esophagram was performed which demonstrates minimal aspiration. There is hypertrophy of the cricopharyngeus musculature. IMPRESSION: 1. Minimal aspiration seen. 2. Hypertrophy of the cricopharyngeus musculature.
== END | disposition home or self-care (01) ==
LOC: RADUSWWP 11:00
PROVIDERS: ATTEND Otolaryngology
DX: J39.2 Other diseases of pharynx (principal); R13.10 Dysphagia, unspecified
CPT/HCPCS: 74220

== ENCOUNTER → 2024-01-21 | Outpatient (CLI) | payer MEDICARE ==
--- NOTE | 2024-01-21 18:18 | MR ---
EXAMINATION TYPE: MR lumbar spine wo/w con DATE OF EXAM: 01/21/2024 COMPARISON: NONE HISTORY: 73-year-old male M43.16, low back pain with LLE radiculopathy. Hx surgery. Technique: Multiplanar, multisequence images of the lumbar spine were obtained before and after admin istration of 6.5 mL intravenous Gadavist gadolinium contrast. FINDINGS: Short segment 3.5 cm fusiform aneurysm infrarenal abdominal aorta. Mild heterogeneous marrow signal without suspicious bone marrow replacement. Conus medullaris is normal. Mild multilevel degenerative disc disease with desiccation bulging discs. More moderate degenerative change at L4-L5 and L5-S1 with disc space narrowing as well. Small posterior annular fissure at L3-L4. 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 There is severe facet arthropathy L5-S1 and moderate to severe on the left L3-L4 and L4-L5. Degenerative grade 1 retrolisthesis L3-L4 and nearly grade 2 anterolisthesis L5-S1. Largest disc bulge is present at L2-L3 with impression on the ventral thecal sac. No large focal disc herniation or significant spinal canal stenosis. On the right, changes results in moderate neural foraminal stenoses from L3 through S1 levels. Mild a t L2-L3. On the left, changes result in moderate foraminal stenoses at L4-L5 and L5-S1. More severe at L3-L4 w ith some associated enhancement along the exiting left L3 nerve root and within the left lateral rece ss at this level. Mild neural foraminal stenosis L2-L3. IMPRESSION: 1. Mild multilevel degenerative disc disease, more moderate in the lower lumbar spine along with hype rtrophic facet arthropathy. Small posterior annular fissure at L3-L4. 2. Degenerative grade one retrolisthesis at L3-L4 and nearly grade 2 anterolisthesis at L5-S1. No lar ge focal disc herniation or significant spinal canal stenosis. 3. Severe left neuroforaminal stenosis at L3-L4 with some associated perineural enhancement. If there was previous surgery here, this could represent some perineural fibrosis. Additional epidural enhanc ement/granulation tissue along the left lateral recess at this level. 4. Additional variable mild and moderate neural foraminal stenoses as outlined above. 5. Note the 3.5 cm infrarenal AAA.
== END | disposition home or self-care (01) ==
LOC: RADMRIMAIN 10:59
PROVIDERS: ATTEND Orthopaedic Surgery Orthopaedic Surgery of the Spine
DX: M48.061 Spinal stenosis, lumbar region without neurogenic claudication (principal); M47.26 Other spondylosis with radiculopathy, lumbar region; M51.16 Intervertebral disc disorders with radiculopathy, lumbar region; M43.17 Spondylolisthesis, lumbosacral region; M51.37 Other intervertebral disc degeneration, lumbosacral region
CPT/HCPCS: 72158; A9585

== ENCOUNTER → 2024-08-23 | Outpatient (CLI) | payer MEDICARE ==
--- NOTE | 2024-08-23 15:02 | XR ---
Right shoulder pain. HISTORY: Pain following fall. COMPARISON: None TECHNIQUE: 3 views of the right shoulder were obtained. FINDINGS: There is mild osteopenia. There is no acute fracture or dislocation. There are no focal intraosseous abnormalities. There is moderate to marked osteoarthritic change of the AC joint. IMPRESSION: No acute trauma. Moderate to marked osteoarthritis of the AC joint. [facility], Workstation: [facility], 08/23/2024 2:59 PM
--- NOTE | 2024-08-23 15:03 | XR ---
Right clavicle HISTORY: Pain following fall. COMPARISON: None. TECHNIQUE: 2 views of the right clavicle were obtained. FINDINGS: There is no fracture or focal intraosseous abnormality. There is moderate to marked osteoarthritis of the AC joint. IMPRESSION: 1. Moderate to marked osteoarthritis of the AC joint. 2. No acute clavicle fracture. [facility], Workstation: [facility], 08/23/2024 3:01 PM
== END | disposition home or self-care (01) ==
LOC: RADXRYALE 14:38
PROVIDERS: ATTEND Physician Assistant
DX: M19.011 Primary osteoarthritis, right shoulder (principal)

== ENCOUNTER → 2024-12-24 | Outpatient (CLI) | payer MEDICARE ==
--- NOTE | 2024-12-24 09:35 | FL ---
EXAMINATION TYPE: FL barium swallow DATE OF EXAM: 12/24/2024 COMPARISON: 324 CLINICAL INDICATION: Male, 74 years old with history of Z12.2 SCREENING Z87.891 FORMER SMOKER; [facility], TECHNIQUE: A double contrast esophagram is performed utilizing air and barium. A total of 29 second s of fluoroscopic time was utilized during procedure and 40. images obtained. Total dose area produc t (DAP) in uGy*m?, mGy*cm? (or similar) Not provided. COMPARISON: None FINDINGS: The esophagus shows normal motility and emptying into the stomach. No evidence of hiatal h ernia or stricture noted. No significant gastroesophageal reflux was seen during real time performanc e of this study. Posterior impression of the esophagus C5-C6 may be related to prominent cricopharyng eal muscle. IMPRESSION: No significant abnormality is seen to account for patient's symptoms. Correlate with EG D as clinically warranted. [facility], , 12/24/2024 9:33 AM
== END | disposition home or self-care (01) ==
LOC: RADFLMAIN 08:45
PROVIDERS: ATTEND Otolaryngology
DX: R13.10 Dysphagia, unspecified (principal)
CPT/HCPCS: 74220

== ENCOUNTER → 2025-01-13 | Outpatient (CLI) | payer MEDICARE ==
--- NOTE | 2025-01-14 12:01 | PE ---
EXAMINATION TYPE: PET CT fusion skull to thigh DATE OF EXAM: 01/13/2025 COMPARISON: No recent pertinent CT. Prior PET/CT: 09/11/2023 CLINICAL INDICATION: Male, 74 years old with history of C01 RIGHT BASE OF TONGUE MASS, TECHNIQUE: Following the intravenous administration of 11.75 mCi of F-18 FDG, whole body images are performed PET CT fusion skull to thigh. Images are reviewed on the computer in the coronal, axial, a nd sagittal planes. Reconstructed rotating images are created on independent workstation and reviewe d on the computer. A localization and attenuation correction CT is performed in conjunction with e PET scan. DLP: 46.3 mGycm SCAN: Initial Blood glucose: 123 mg/dL Average Mediastinum SUV: 1.6 Average Liver SUV: 1.94 FINDINGS: HEAD and NECK: There is some mild residual uptake within the anterior right lateral aspect of the man dible near the apex, example image 51. This has an SUV of 5.28. Consider some periodontal disease at this level. NECK: Some left neck scalene muscle uptake is present. No suspicious uptake within adenopathy is dale dent. THORAX: No suspicious uptake. No suspicious uptake within a density in the posterior right apex. Image 92, SUV 1.2 ABDOMEN: No suspicious uptake PELVIS: No suspicious uptake OSSEOUS STRUCTURES: There is uptake at the right sternal clavicular junction which appears to be dege nerative in nature. LOCALIZATION CT: Appears to be degenerative type change or old fracture of the medial right clavicle. COMPARISON: Fusiform prominence of the mid abdominal aorta is stable. IMPRESSION: 1. Mild residual uptake in the anterior lateral right mandible. Correlate with location of the patien t's prior neoplasm. Periodontal disease be considered within the differential. This area is diminishe d in intensity from comparison. 2. No suspicious new areas of uptake to suggest metastatic disease. 3. Old right clavicular fracture is an interval finding from 09/11/2023. [facility], , 01/14/2025 11:59 AM
== END | disposition home or self-care (01) ==
LOC: RADPETMAIN 07:47
PROVIDERS: ATTEND Otolaryngology
DX: C01 Malignant neoplasm of base of tongue (principal); K05.6 Periodontal disease, unspecified
CPT/HCPCS: 78815; A9552